=== PATIENT | female | born 1950 | race Caucasian/White ===

== ENCOUNTER → 2017-05-24 | Outpatient (CLI) | payer MEDICARE, OTHER ==
--- NOTE | 2017-05-28 09:04 | MM ---
Reason for exam: screening (asymptomatic). Last mammogram was performed 1 year and 9 months ago. History: Patient is postmenopausal and had first child at age 31. Physical Findings: A clinical breast exam by your physician is recommended on an annual basis and results should be correlated with mammographic findings. MG 3D Screening Mammo W/Cad Bilateral CC and MLO view(s) were taken. Prior study comparison: September 08, 2015, bilateral MG screening mammo w CAD. July 17, 2014, bilateral MG screening mammo w CAD. There are scattered fibroglandular densities. No significant changes when compared with prior studies. ASSESSMENT: Negative, BI-RAD 1 RECOMMENDATION: Routine screening mammogram of both breasts in 1 year.
== END | disposition home or self-care (01) ==
LOC: RADMAMWWP 14:24
PROVIDERS: ATTEND Obstetrics & Gynecology
DX: Z12.31 Encounter for screening mammogram for malignant neoplasm of breast (principal)
CPT/HCPCS: 77063; G0202

== ENCOUNTER → 2018-01-17 | Outpatient (CLI) | payer MEDICARE, OTHER ==
--- NOTE | 2018-01-17 18:29 | BD ---
EXAMINATION TYPE: Axial Bone Density DATE OF EXAM: 01/17/2018 COMPARISON: NONE CLINICAL HISTORY: Height: 4 FT 9 IN Weight: 154 FRAX RISK QUESTIONS: History of Fracture in Adulthood: YES Secondary Osteoporosis: RISK FACTORS HISTORY OF: Postmenopausal woman: AGE 49 Take estrogen and/or progesterone medications: TOOK FOR AROUND 3 YEARS NO LONGER TAKES Lost more than 2 inches in height since high school: YES MEDICATIONS: Additional Medications: EFFEXOR,VIT D ,ASPIRIN, ADIVAN NEEDED Additional History: EXAM MEASUREMENTS: Bone mineral densitometry was performed using the [employer] System. Bone mineral density as measured about the Lumbar spine is: ----- L1-L4(G/cm2): 1.138 T Score Values are as follows: ----- L2: 0.0 ----- L3: 0.8 ----- L4: -0.7 ----- L1-L4: -0.3 Bone mineral density has: DECREASED -5.5 % since study of: 2015 Bone mineral density about the L hip (g/cm2): 0.717 T Score values are as follows: -----L Neck: -2.3 -----L Total: -1.7 Bone mineral density has: DECREASED -9.9 % since study of: 2015 IMPRESSION: Osteopenia (T Score between -2.5 and -1). There is slightly increased risk of fracture and the patient may be considered for treatment. Re-Screen 2-5 years. NOTE: T-SCORE=SD OF THE YOUNG ADULT MEAN.
== END | disposition home or self-care (01) ==
LOC: RADBDWWP 16:24
PROVIDERS: ATTEND Obstetrics & Gynecology
DX: M85.80 Other specified disorders of bone density and structure, unspecified site (principal)
CPT/HCPCS: 77080

== ENCOUNTER 2018-04-20 13:55 | Emergency (ER) | payer MEDICARE, OTHER ==
[2018-04-20 14:13] VITALS: RESP 18; TEMP 97.8
[2018-04-20] MEDS ORDERED: DIPH,PERTUS(ACELL)TETVAC-LF 0.5 ML VIAL IM ONE (14:42)
--- NOTE | 2018-04-20 15:10 | ED ---
Head Injury HPI - General Chief complaint: Head Injury Stated complaint: Head injury Time Seen by Provider: 04/20/18 14:14 Source: patient, RN notes reviewed Mode of arrival: ambulatory Limitations: no limitations - History of Present Illness Initial comments: This is a 68-year-old female sent emergency Department chief complaint facial and head injury. Patient states that last night she was walking tripped on uneven sidewalk falling forward. She states that she sustained a laceration to her left eyebrow region states that she woke up with increased pain and bruising. She denies any loss conscious. Patient states that she went to urgent care who referred to the emergency Department secondary to her injury. Patient denies headache, dizziness, nausea, vomiting, blurred vision. Patient is unsure when her last tetanus was. - Related Data Allergies/Adverse reactions: Allergies Allergy/AdvReac Type Severity Reaction Status Date / Time bacitracin Allergy Rash/Hives Verified 04/20/18 14:13 neomycin Allergy Rash/Hives Verified 04/20/18 14:13 Review of Systems ROS Statement: Those systems with pertinent positive or pertinent negative responses have been documented in the HPI. ROS Other: All systems not noted in ROS Statement are negative. Past Medical History Additional Past Medical History / Comment(s): Arthritis History of Any Multi-Drug Resistant Organisms: None Reported Past Surgical History: Orthopedic Surgery Past Psychological History: Anxiety, Depression Smoking Status: Never smoker Past Alcohol Use History: Daily Past Drug Use History: None Reported General Exam Limitations: no limitations General appearance: alert, in no apparent distress Head exam: Present: atraumatic, normocephalic, normal inspection Eye exam: Present: normal appearance, PERRL, EOMI, periorbital swelling ( Moderate left-sided with ecchymosis), periorbital tenderness (Left superior, superficial 3 cm laceration). Absent: scleral icterus, conjunctival injection ENT exam: Present: normal exam, normal oropharynx, mucous membranes moist, TM's normal bilaterally Neck exam: Present: normal inspection, full ROM. Absent: tenderness, meningismus, lymphadenopathy Respiratory exam: Present: normal lung sounds bilaterally. Absent: respiratory distress, wheezes, rales, rhonchi, stridor Cardiovascular Exam: Present: regular rate, normal rhythm, normal heart sounds. Absent: systolic murmur, diastolic murmur, rubs, gallop, clicks GI/Abdominal exam: Present: soft, normal bowel sounds. Absent: distended, tenderness, guarding, rebound, rigid Neurological exam: Present: alert, oriented X3, CN II-XII intact, reflexes normal. Absent: motor sensory deficit Skin exam: Present: warm, dry, intact, normal color. Absent: rash Course Vital Signs 04/20/18 14:08 Temperature 97.8 F Pulse Rate 68 Respiratory 18 Rate Blood Pressure 127/61 O2 Sat by Pulse 99 Oximetry Medical Decision Making - Medical Decision Making 68-year-old female presented emergency Department for head injury, facial injury. Patient did have CT of her facial bones, brain and C-spine which shows no acute abnormality. Her tetanus was updated emergency room secondary to her laceration. There is no need for closure at this time. Patient will follow-up for recheck and return for any worsening symptoms. Disposition Clinical Impression: Facial contusion, Facial laceration Disposition: HOME SELF-CARE Condition: Stable Instructions: Facial Contusion (ED) Additional Instructions: Please return to the Emergency Department if symptoms worsen or any other concerns. Is patient prescribed a controlled substance at d/c from ED?: No Referrals: Charly Newman DO [Primary Care Provider] - 1-2 days Time of Disposition: 15:29
--- NOTE | 2018-04-20 15:19 | CT ---
EXAMINATION TYPE: CT brain larisa mendieta DATE OF EXAM: 04/20/2018 COMPARISON: None HISTORY: Pain CT DLP: 1079.4 mGycm, Automated exposure control for dose reduction was used. CONTRAST: Patient injected with 0 mL of Isovue 300. CT of the brain is performed utilizing 3 mm thick sections through the posterior fossa and 3 mm thick sections through the remaining calvarium. Study is performed within 24 hours of arrival to the hospital. No abnormal hyperdensity is present to suggest an acute intracranial hemorrhage. No mass lesion is evident. No acute infarcts are evident. Ventricles and sulci are appropriate for the patient age. Paranasal sinuses and mastoid air cells within the [id number] are clear. IMPRESSIONS: 1. No acute intracranial process. CT cervical spine. COMPARISON: None CT of the cervical spine is performed in the axial plane at 2 mm thick sections. Reconstructed image s in the coronal, and sagittal plane are reviewed on the computer. No acute fractures are evident. There is mild kyphosis through the cervical spine and within the mid to upper cervical spine. There is loss of disc height through the cervical spine especially notable C5-6. Milder narrowing is present C4-5 and C6-7. No significant endplate compression of the thecal sac is evident at C6-7. Ther e is central spurring C5-6 with moderate anterior thecal sac compression. This is contributing to bor derline spinal canal stenosis with an AP diameter of 0.8 cm. Uncovertebral joint hypertrophy is contr ibuting to foraminal narrowing C5-6 level. Some facet degenerative changes are noted in the upper cer vical spine. Vertebral body heights are preserved. No spinal canal stenosis is evident. IMPRESSIONS: 1. Degenerative disc changes within the mid cervical spine. 2. Endplate spurring at C5-C6 is contributing to mild spinal canal stenosis. 3. Foraminal narrowing mid cervical spine discussed above. 4. No acute osseous abnormality.
--- NOTE | 2018-04-20 15:20 | CT ---
EXAMINATION TYPE: CT facial bones wo con DATE OF EXAM: 04/20/2018 COMPARISON: None HISTORY: pain CT DLP: 410.1 mGycm CONTRAST: 0 mL of Isovue 300 The paranasal sinuses are examined in the axial plane at 2 mm thick sections. Reconstructed images i n the coronal plane were obtained. There is dental amalgam scatter artifact through the maxilla. The maxillary sinuses are clear. The ethmoid air cells are clear. The sphenoid sinuses are clear. The frontal sinuses are clear. Soft tissue swelling is over the left frontal region. No underlying f racture is evident. The septum is evaluated. There is septal deviation to the right. There is a small right septal spur present. Left harvinder bullosa is noted.. The ostiomeatal units are patent. IMPRESSIONS: 1. No acute osseous abnormality.
[2018-04-20 16:30] VITALS: BP 139/69; PULSE 92
== END 2018-04-20 16:30 | disposition home or self-care (01) ==
LOC: EC 13:55
DX: S01.112A Laceration without foreign body of left eyelid and periocular area, initial encounter (principal); Z23 Encounter for immunization; Z88.2 Allergy status to sulfonamides; Z88.1 Allergy status to other antibiotic agents; W01.0XXA Fall on same level from slipping, tripping and stumbling without subsequent striking against object, initial encounter
CPT/HCPCS: 70450; 70486; 72125; 90471; 90715; 99283

== ENCOUNTER → 2018-12-04 | Outpatient (CLI) | payer MEDICARE, OTHER ==
--- NOTE | 2018-12-06 08:25 | MM ---
Reason for exam: screening (asymptomatic). Last mammogram was performed 1 year and 6 months ago. History: Patient is postmenopausal and had first child at age 31. Family history of breast cancer in sister at age 50. Physical Findings: A clinical breast exam by your physician is recommended on an annual basis and results should be correlated with mammographic findings. MG 3D Screening Mammo W/Cad Bilateral CC and MLO view(s) were taken. Prior study comparison: May 24, 2017, bilateral MG 3d screening mammo w/cad. September 08, 2015, bilateral MG screening mammo w CAD. There are scattered fibroglandular densities. There is chronic nodularity in the right anterior medial breast. No significant changes when compared with prior studies. ASSESSMENT: Negative, BI-RAD 1 RECOMMENDATION: Routine screening mammogram of both breasts in 1 year.
== END | disposition home or self-care (01) ==
LOC: RADMAMWWP 13:45
PROVIDERS: ATTEND Obstetrics & Gynecology
DX: Z12.31 Encounter for screening mammogram for malignant neoplasm of breast (principal)
CPT/HCPCS: 77063; 77067

== ENCOUNTER → 2019-09-11 | Outpatient (CLI) | payer MEDICARE, OTHER ==
--- NOTE | 2019-09-12 08:03 | US ---
EXAMINATION TYPE: US carotid duplex BILAT DATE OF EXAM: 09/11/2019 COMPARISON: NONE CLINICAL HISTORY: I65.23 occlusion and stenosis of bilateral carotid. EXAM MEASUREMENTS: RIGHT: Peak Systolic Velocity (PSV) cm/sec ----- Right CCA: 86.6 ----- Right ICA: 101.1 ----- Right ECA: 99.4 ICA/CCA ratio: 1.2 RIGHT: End Diastole cm/sec ----- Right CCA: 19.3 ----- Right ICA: 25.6 ----- Right ECA: 13.5 LEFT: Peak Systolic Velocity (PSV) cm/sec ----- Left CCA: 11.0 ----- Left ICA: 119.8 ----- Left ECA: 87.5 ICA/CCA ratio: 1.1 LEFT: End Diastole cm/sec ----- Left CCA: 29.4 ----- Left ICA: 36.0 ----- Left ECA: 12.8 VERTEBRALS (direction of flow): Right Vertebral: Antegrade Left Vertebral: Antegrade Rhythm: Normal Mild plaque, no significant stenosis seen. IMPRESSION: Mild degree of grayscale atheromatous plaquing with no sonographically evident hemodynam ically significant stenosis within either visualized carotid arterial system. Criteria for Assigning % of Stenosis / Diameter reduction (Estimation based on the indirect measurements of the internal carotid artery velocities (ICA PSV). 1. Normal (no stenosis)=ICA PSV < 125 cm/s: ratio < 2.0: ICA EDV<40 cm/s. 2. Less than 50% stenosis=ICA PSV < 125 cm/s: ratio < 2.0: ICA EDV<40 cm/s. 3. 50 to 69% stenosis=ICA PSV of 125 to 230 cm/s: ration 2.0 ? 4.0: ICA EDV 40-100 cm/s. 4. Greater than 70% stenosis to near occlusion= ICA PSV > 230 cm/s: ratio > 4.0: ICA EDV > 100 cm/s. 5. Near occlusion= ICA PSV velocities may be low or undetectable: variable ratio and ICA EDV. 6. Total occlusion=unable to detect flow.
== END | disposition home or self-care (01) ==
LOC: RADUSWWP 16:23
PROVIDERS: ATTEND Family Medicine
DX: I65.23 Occlusion and stenosis of bilateral carotid arteries (principal)
CPT/HCPCS: 93880

== ENCOUNTER → 2021-06-10 | Outpatient (CLI) | payer MEDICARE, OTHER ==
--- NOTE | 2021-06-10 14:38 | BD ---
EXAMINATION TYPE: Axial Bone Density DATE OF EXAM: 06/10/2021 COMPARISON: 01/17/2018 CLINICAL HISTORY: Height: 56.5 IN Weight: 123 LBS RISK FACTORS HISTORY OF: Active: YES Diet low in dairy products/other sources of calcium: YES Postmenopausal woman: AGE 47 Take estrogen and/or progesterone medications: NOT NOW How long: TOOK FOR 5 YEARS Frequent falls: 4 TIMES IN LAST YEAR "TRIPPING" MEDICATIONS: Osteoporosis Medications: NOT NOW Which medication: Fosamax How Lon YEARS Additional Medications: CALCIUM, VIT D, VENLAFAXINE, LORAZEPAM, ROLAIDS, EXAM MEASUREMENTS: Bone mineral densitometry was performed using the Reaction System. Bone mineral density as measured about the Lumbar spine is: ----- L1-L4(G/cm2): 1.162 T Score Values are as follows: ----- L2: -1.2 ----- L3: 1.7 ----- L4: 0.9 ----- L1-L4: -0.1 Bone mineral density has: Increased 5.7% since study of: 01/17/2018 Bone mineral density about the R hip (g/cm2): 0.755 Bone mineral density about the L hip (g/cm2): 0.738 T Score values are as follows: -----R Neck: -2.0 -----L Neck: -2.2 -----R Total: -1.1 -----L Total: -2.1 Bone mineral density has: Decreased -5.4% since study of: 09/08/2015 BOTH HIPS WERE DONE ON 09/08/2015 IMPRESSION: Osteopenia (T Score between -2.5 and -1). There is slightly increased risk of fracture and the patient may be considered for treatment. Re-Screen 2-5 years. NOTE: T-SCORE=SD OF THE YOUNG ADULT MEAN.
--- NOTE | 2021-06-13 13:55 | MM ---
Reason for exam: screening (asymptomatic). Last mammogram was performed 2 years and 6 months ago. History: Patient is postmenopausal and had first child at age 31. Family history of breast cancer in sister at age 50. Physical Findings: A clinical breast exam by your physician is recommended on an annual basis and results should be correlated with mammographic findings. MG 3D Screening Mammo W/Cad Bilateral CC and MLO view(s) were taken. Prior study comparison: December 04, 2018, bilateral MG 3d screening mammo w/cad. May 24, 2017, bilateral MG 3d screening mammo w/cad. September 08, 2015, bilateral MG screening mammo w CAD. The breast tissue is heterogeneously dense. This may lower the sensitivity of mammography. Decreased breast size in keeping with patient's weight loss. Benign secretory calcifications on the right. No significant changes when compared with prior studies. ASSESSMENT: Benign, BI-RAD 2 RECOMMENDATION: Routine screening mammogram of both breasts in 1 year.
== END | disposition home or self-care (01) ==
LOC: RADBDWWP 12:47
PROVIDERS: ATTEND Obstetrics & Gynecology
DX: Z12.31 Encounter for screening mammogram for malignant neoplasm of breast (principal); Z80.3 Family history of malignant neoplasm of breast; Z13.820 Encounter for screening for osteoporosis; M85.89 Other specified disorders of bone density and structure, multiple sites; Z78.0 Asymptomatic menopausal state
CPT/HCPCS: 77063; 77067; 77080

== ENCOUNTER → 2021-06-24 | Outpatient (CLI) | payer MEDICARE, OTHER ==
[2021-06-24 16:50] LABS: Basophils % (A) 1 %; Eosinophils % (A) 0 %; HCT 42.6 % (34.0-46.0); HGB 13.1 gm/dL (11.4-16.0); Lymphocytes # (A) 1.1 k/uL (1.0-4.8); Lymphocytes % (A) 17 %; MCH 28.6 pg (25.0-35.0); MCHC 30.9 g/dL (31.0-37.0); MCV 92.7 fL (80.0-100.0); Mean Platelet Volume 7.1; Monocytes # (A) 0.2 k/uL (0-1.0); Monocytes % (A) 3 %; Neutrophils # (A) 4.7 k/uL (1.3-7.7); Neutrophils % (A) 77 %; Platelet Count 278 k/uL (150-450); RBC 4.59 m/uL (3.80-5.40); RDW 12.9 % (11.5-15.5); WBC 6.1 k/uL (3.8-10.6)
[2021-06-24 17:14] LABS: Potassium 5.6 mmol/L (3.5-5.1)
== END | disposition home or self-care (01) ==
LOC: LABPAT 15:49
PROVIDERS: ATTEND Orthopaedic Surgery
DX: Z01.812 Encounter for preprocedural laboratory examination (principal); G56.01 Carpal tunnel syndrome, right upper limb
CPT/HCPCS: 80051; 85025

== ENCOUNTER 2021-07-01 08:20 | Day surgery (SDC) | payer MEDICARE, OTHER ==
[2021-06-29 14:43] VITALS: BMI 25.9
--- NOTE | 2021-06-30 10:45 | HP ---
HISTORY AND PHYSICAL CHIEF COMPLAINT: Right hand pain and numbness. HISTORY OF PRESENT ILLNESS: The patient is a 71-year-old retired female who presents with progressive right hand pain and numbness for the past several years, worsening recently. She is having a difficult time with gripping and grasping. She notes numbness and pain. She has tried bracing and medications, with only partial temporary relief. PAST MEDICAL HISTORY: Significant for depression, osteopenia and peptic ulcer disease. PAST SURGICAL HISTORY: Significant for previous right hand surgery in addition to previous knee surgery. CURRENT MEDICATIONS: Lorazepam, Tylenol, Venlafaxine. ALLERGIES: BACITRACIN AND NEOMYCIN. FAMILY HISTORY: Significant for heart disease and cancer. SOCIAL HISTORY: Negative for current tobacco or alcohol use. REVIEW OF SYSTEMS: Sixteen-point review of systems is otherwise reviewed and noncontributory. PHYSICAL EXAMINATION: On examination, the patient is approximately 4 feet 9 inches, 110 pounds of mesomorphic habitus. HEENT exam is nonfocal. Neck is supple. She is nontender about the right shoulder and elbow. On examination of her right wrist, she has a positive Tinel's over the carpal canal. Light touch is diminished throughout the thumb, index and middle finger. Adductor pollicis brevis strength is 4 minus over 5. She has profound thenar atrophy. EMG report 05/03/2021 of the right upper extremity shows median motor latency of the carpal canal 4.4, sensory latency non-recordable. IMPRESSION: Right carpal tunnel syndrome, symptomatic. RECOMMENDATIONS: I talked to the patient at length regarding her condition along with treatment options. At this point she is quite symptomatic and limited because of pain and numbness despite previous conservative measures. After thorough discussion, she opts to proceed with surgery. We will plan to proceed with right carpal tunnel release as an outpatient procedure utilizing local anesthetic and IV sedation. Risks and benefits were discussed at length in layman's terms. MMODL / IJN: [id number] /
[~2021-07-01 08:20] MED LIST: DEXAMETHASONE SOD PHOSPHATE 4 MG/ML 1 ML VIAL IV ONE; HYDROmorphone 0.5 MG/0.5 ML SYRINGE IVP PRN; LACTATED RINGERS 1,000 ML IV SCH; MIDAZOLAM 2 MG/2 ML VIAL IV PRN; ONDANSETRON 4 MG/2 ML VIAL IVP ONE
[2021-07-01 08:51] VITALS: TEMP 98.2
[2021-07-01] MEDS ORDERED: PROPOFOL 10 MG/ML 20 ML VIAL IV ONE (09:41)
[2021-07-01] MEDS ORDERED: LIDOCAINE 1% INJ 10MG/ML (20 ML MDV) ONE (09:41)
[2021-07-01] MEDS ORDERED: fentaNYL (PF) 50 MCG/ML 2 ML AMP ONE (09:41)
[2021-07-01] MEDS ORDERED: MIDAZOLAM 2 MG/2 ML VIAL ONE (09:41)
[2021-07-01] MEDS ORDERED: diphenhydrAMINE 50 MG/ML 1 ML VIAL ONE (09:41)
[2021-07-01] MEDS ORDERED: BUPIVACAINE (PF) 0.25% 30 ML VIAL SQ ONE ×2 (10:02)
[2021-07-01 10:38] VITALS: BP 134/77; PULSE 68; RESP 18
--- NOTE | 2021-07-01 11:02 | P.OP ---
Date of Procedure: 07/01/21 Preoperative Diagnosis: Symptomatic right carpal tunnel syndrome Postoperative Diagnosis: Same Procedure(s) Performed: Right carpal tunnel release Anesthesia: MAC, local Surgeon: Vinny Hernandez Estimated Blood Loss (ml): 1 Pathology: none sent Condition: stable Disposition: PACU Indications for Procedure: The patient's a 71-year-old female presents with progressive right hand pain and numbness secondary to carpal tunnel syndrome despite conservative measures. A discussion of the risks and benefits of operative intervention versus continued conservative measures was made with the patient. She opted to proceed with surgery. Operative risks to include infection, neurovascular injury, development blood clots, possible incomplete resolution of symptoms, possible recurrence of symptoms and need for subsequent procedures was discussed. Informed consent was obtained. Operative Findings: As below Description of Procedure: The patient was brought to the operating room, and after induction of IV sedation the right upper extremity was prepped and draped in normal fashion. The proposed incision site was outlined skin marker in line with the radial aspect the fourth ray extending from the volar wrist crease distally 2-1/2 cm. One quarter percent plain Marcaine was injected into the proposed incision site. 9 mL was utilized. The tourniquet was inflated to 250 mmHg. The skin incision was then made. The skin was incised sharply. Subcutaneous tissues were divided sharply the superficial palmar fascia was identified and split in line with the skin incision. The transverse carpal ligament was identified and transected under direct visualization distally to level the palmar fat pad. Proximally it was taken to the level of the volar wrist crease. A plane above and below the transverse carpal ligament was then bluntly developed with tenotomies. The confluence of the distal forearm fascia and the transverse carpal ligament was then transected under direct visualization proximally with the tines pointed in the ulnar direction. I felt this was adequate proximal release. Neural lysis was not performed. The wound was irrigated with normal saline. Electrocautery was used for hemostasis. The skin was reapproximated with simple 3-0 nylon sutures. A sterile dressing was applied. The tourniquet was deflated with less than 15 minutes total tourniquet time. Patient was awoken from sedation and transferred to the recovery room in good condition. Blood loss was estimated 1 mL. No complications were incurred. Sponge and needle counts were correct at the end of the case.
== END 2021-07-01 11:04 | disposition home or self-care (01) ==
LOC: OR 08:20
PROVIDERS: ATTEND Orthopaedic Surgery
DX: G56.01 Carpal tunnel syndrome, right upper limb (principal); F32.9 Major depressive disorder, single episode, unspecified; M85.80 Other specified disorders of bone density and structure, unspecified site; K27.9 Peptic ulcer, site unspecified, unspecified as acute or chronic, without hemorrhage or perforation; K21.9 Gastro-esophageal reflux disease without esophagitis; Z79.899 Other long term (current) drug therapy; Z88.1 Allergy status to other antibiotic agents
CPT/HCPCS: 84132; 64721; J2250; J1200; J1100; J2405; J0690; J2001; J3010; J2704

== ENCOUNTER → 2022-02-07 | Outpatient (CLI) | payer MEDICARE, OTHER | END | disposition home or self-care (01) | LOC: LABPAT 15:49 | PROVIDERS: ATTEND Orthopaedic Surgery | DX: Z01.812 Encounter for preprocedural laboratory examination (principal); M17.12 Unilateral primary osteoarthritis, left knee | CPT/HCPCS: 87070 ==

== ENCOUNTER 2022-02-14 10:27 | Inpatient (IN) | payer MEDICARE, OTHER ==
[2022-02-09 15:37] VITALS: BMI 29.8
--- NOTE | 2022-02-13 09:53 | HP ---
HISTORY AND PHYSICAL CHIEF COMPLAINT: Left knee pain. HISTORY OF PRESENT ILLNESS: The patient is a 71-year-old retired female who presents with progressive left knee pain for the past several years, worsening recently. She has a difficult time with any weight-bearing activities. She is also having pain at night. She has tried medications in addition to previous injections, without much relief. PAST MEDICAL HISTORY: Significant for arthritis, osteopenia, depression and peptic ulcer disease. PAST SURGICAL HISTORY: Significant for right hand surgery in addition to previous right total knee arthroplasty with subsequent revision. CURRENT MEDICATIONS: Lorazepam, acetaminophen. ALLERGIES: BACITRACIN AND NEOMYCIN. FAMILY HISTORY: Significant for heart disease and cancer. SOCIAL HISTORY: Negative for current tobacco or alcohol use. REVIEW OF SYSTEMS: Sixteen-point review of systems otherwise reviewed and is noncontributory. PHYSICAL EXAMINATION: On examination, patient is approximately 4 feet 9 inches, 110 pounds of mesomorphic habitus. HEENT exam is nonfocal. Neck is supple. She has painless passive motion of the left hip. Straight-leg raise is negative. Active motion of left knee: Minus 14 to 90 degrees of flexion. She has mild effusion. She is tender about the medial joint line. Collaterals are stable. Mike is negative. Sam's is equivocal. She has significant genu varum deformity. Weight-bearing notch, lateral and Merchant views of the left knee obtained in the office show severe medial compartment narrowing with [id number] changes and subchondral sclerosis. Severe genu varum deformity is noted. IMPRESSION: Left knee severe medial compartment osteoarthrosis. RECOMMENDATIONS: I talked to the patient at length regarding her condition along with treatment options. At this point she is quite limited because of pain related to her osteoarthrosis despite previous conservative measures. After thorough discussion, she opts to proceed with surgery. We will plan to proceed with left total knee arthroplasty. Risks and benefits were discussed at length in layman's terms. We will institute DVT prophylaxis postoperatively. MMODL / IJN: [id number] /
[~2022-02-14 10:27] MED LIST changes: +ACETAMINOPHEN TAB 500 MG TAB PO PRN; -LACTATED RINGERS 1,000 ML IV SCH; +LIDOCAINE 1% (10MG/ML) FOR IV START INTRADERMA PRN; +MELOXICAM 7.5 MG TAB PO PRN; +TRANEXAMIC ACID IN NACL,ISO-OS 1,000 MG in SALINE 1 100ML.BAG IVPB PRN
[2022-02-14] MEDS: LACTATED RINGERS 1,000 ML IV SCH ×2 (10:42→16:13)
[2022-02-14] MEDS ORDERED: MIDAZOLAM 2 MG/2 ML VIAL IVP ONE (11:51)
[2022-02-14] MEDS ORDERED: fentaNYL (PF) 50 MCG/ML 2 ML AMP ONE (12:07)
[2022-02-14] MEDS ORDERED: diphenhydrAMINE 50 MG/ML 1 ML VIAL ONE (12:07)
[2022-02-14] MEDS ORDERED: ROPIVACAINE 5 MG/ML 30 ML VIAL ONE (12:07)
[2022-02-14] MEDS ORDERED: KETAMINE 10 MG/ML 20 ML VIAL ONE (12:07)
[2022-02-14] MEDS ORDERED: MIDAZOLAM 2 MG/2 ML VIAL ONE (12:07)
[2022-02-14] MEDS ORDERED: DEXAMETHASONE SOD PHOSPHATE 4 MG/ML 1 ML VIAL ONE (12:07)
[2022-02-14] MEDS ORDERED: PROPOFOL 10 MG/ML 20 ML VIAL IV ONE (12:07)
[2022-02-14] MEDS ORDERED: PHENYLEPHRINE-0.9% NACL SYG 1,000 MCG/10 ML SYRINGE ONE (12:07)
[2022-02-14] MEDS ORDERED: TRANEXAMIC ACID IN NACL,ISO-OS 1,000 MG/100 ML BAG ONE (12:07)
[2022-02-14] MEDS ORDERED: ceFAZolin 3,000 MG in SODIUM CHLORIDE 0.9% IRRIGATIO 3,000 ML IRRIGATION ONE (12:41)
[2022-02-14] MEDS ORDERED: LACTATED RINGERS 1,000 ML IV ONE (13:16)
[2022-02-14] MEDS ORDERED: HYDROcodone/APAP 5-325MG 1 EACH TAB PO PRN (14:06)
[2022-02-14] MEDS ORDERED: HYDROmorphone 0.5 MG/0.5 ML SYRINGE IVP PRN (14:06)
[2022-02-14] MEDS ORDERED: ONDANSETRON 4 MG/2 ML VIAL IVP PRN (14:06)
[2022-02-14] MEDS ORDERED: NALOXONE 0.4 MG/ML 1 ML VIAL IV PRN (14:06)
[2022-02-14] MEDS ORDERED: MAGNESIUM HYDROXIDE 2,400 MG/10 ML CUP PO PRN (14:06)
[2022-02-14] MEDS ORDERED: ACETAMINOPHEN TAB 325 MG TAB PO PRN (14:06)
--- NOTE | 2022-02-14 14:30 | P.OP ---
Date of Procedure: 02/14/22 Preoperative Diagnosis: Left knee severe tricompartmental osteoarthrosis Postoperative Diagnosis: Same Procedure(s) Performed: Left total knee arthroplastycementedconstrained Implants: Depuy TC3 size 3 cemented femoral component, size 2.5 cemented tibial component with a 29 mm metaphyseal sleeve and 13 x 30 mm cemented tibial stem, 12.5 mm articular surface. This is a constrained implant. Anesthesia: regional, spinal Surgeon: Vinny Hernandez Field Sales Agent #1: Myron Barraza Field Sales Agent #2: Vlad Malik Estimated Blood Loss (ml): 50 Pathology: other (Bone fragments) Condition: stable Disposition: PACU Indications for Procedure: The patient's a 71-year-old female who presents with progressive left knee pain and deformity secondary to osteoarthrosis despite conservative measures. A discussion of the risks and benefits of operative intervention versus continued conservative measures was made with patient. She opted to proceed with surgery. Operative risks to include infection, neurovascular injury, development of blood clots, fracture, instability, component failure need for subsequent procedures was discussed. Informed consent was obtained. Operative Findings: As below Description of Procedure: The patient was brought to the operating room, and after induction of spinal anesthesia the left lower extremity was prepped and draped in a normal fashion. The tourniquet was inflated to 270 mm marker. A longitudinal incision extending 3 finger breaths above the superior pole of patella extending to the medial aspect the tibial tubercle was then made. The skin and subcutaneous tissues were divided sharply. Electrocautery was used for hemostasis. A medial parapatellar arthrotomy was performed. The medial soft tissues to include the superficial and deep portions of the medial collateral ligament were elevated subperiosteally. The medial tibial osteophytes were removed with a curved osteotome. The patella was everted. A portion of the retropatellar fat pad was excised sharply. The anterior cruciate ligament was sacrificed. Blunt retractors were placed. A starting hole was made in the distal femur 1 cm anterior to the posterior cruciate ligament origin. An intramedullary femoral guide was then inserted planning on 5 valgus distal cut with 9 mm distal resection. The cutting block was pinned in place. The distal cut was then made. The posterior referencing sizing guide was utilized. I felt size 3 was most appropriate. 3 of external rotation was built into the system and verified off the trans-epicondylar axis and the posterior condyles. The cutting block was pinned in place. The anterior, posterior, and chamfer cuts then made. Bone fragments were removed. The intercondylar guide was placed and the notch cut was made with a sagittal saw. The bone block was removed in one fragment. The trial component was then placed. There is good anterior to posterior and medial to lateral fit. The distal peg holes were drilled. The trial component was removed. Attention was then paid towards preparing the proximal femur. An extra medullary guide was utilized in line with the tibial shaft and second metatarsal distally. I planned on 0 mm resection from the medial compartment. The cutting block was pinned in place. The proximal tibial cut was then made. The bone was removed in one fragment. The remnants of the medial and lateral menisci were excised at the capsular junction with electrocautery. The tibia sized most appropriately at size 2.5. The tibial canal was reamed up to 14 mm distally. The opening broach reamer was inserted to the appropriate depth. The 29 mm broach was then inserted the appropriate depth. There was good rotational stability. The trial femoral and tibial components were placed along with a 12.5 mm articular surface. I was able to obtain full flexion and extension with internal and external rotation. Attention was then paid towards preparing the patella. A patella reamer was utilized taking stem to 14 mm of bone stock. A good flush cut was made. The patella sized most appropriately 32 mm. The peg holes were drilled. The trial components placed. I had good patellofemoral tracking with no hands technique. The trial components were then removed. The tibia was prepared in the appropriate rotation with appropriate drill and keel p unch. The posterior osteophytes were removed with a curved osteotome. The flexion and extension gaps were checked and felt to be symmetric at 12.5 mm. A trial components were then removed. The bony surfaces were prepared with pulsatile lavage and dried. The tibial component was then cemented place was fully seated. Excess cement was removed. The femoral component cemented place and was fully seated. Excess cement was removed. The trial 12.5 mm articular surface was placed and the knee was put in full extension. The patella component was cemented place. After the cement had sufficiently hardened, the knee was again taken through a range of motion. Again I was able to obtain full flexion and extension with varus and valgus stress. The trial 12.5 mm articular surface was removed and the final one inserted. This was fully seated. Care was taken to avoid any soft tissue interposition. Pulsatile lavage was again utilized. The medial parapatellar arthrotomy was closed with #2 Ethibond suture. The tourniquet was deflated with approximately 70 minutes total tourniquet time. Final hemostasis was obtained with the cautery. There was minimal bleeding therefore a deep drain was not placed. The subcutaneous tissues were reapproximated with interrupted 2-0 Vicryl sutures. The skin was reapproximated with 3-0 subcuticular strata fix suture. Skin tape and adhesive was applied. A sterile dressing was applied. The patient was awoken from sedation and transferred to recovery room in good condition. Blood loss was estimated at 50 mL. No complications were incurred. Sponge and needle counts were correct at the end of the case. Myron REEVES and Phil REEVES assisted during the major components of this case to include exposure, bone resection, implantation, and closure.
[2022-02-14] MEDS ORDERED: ROPIVACAINE 0.2%-NS ON-Q PUMP 2 MG/ML EACH MISCELLANE ONE (14:40)
--- NOTE | 2022-02-14 15:06 | XR ---
EXAMINATION TYPE: XR knee limited LT DATE OF EXAM: 02/14/2022 COMPARISON: NONE HISTORY: 71-year-old female evaluation for postoperative abnormality in alignment. TECHNIQUE: 2 views FINDINGS: Images show placement of hinged left total knee arthroplasty. Alignment grossly anatomic. Anterior so ft tissue swelling with scattered soft tissue air as well as intra-articular air related to recent op eration. IMPRESSION: Uncomplicated postoperative appearance revision hinged left total knee arthroplasty.
[2022-02-14] MEDS ORDERED: FAMOTIDINE 20 MG TAB PO PRN (17:56)
[2022-02-14] MEDS: SENNOSIDES-DOCUSATE SODIUM 1 EACH TAB PO SCH (20:41)
[2022-02-14] MEDS: VENLAFAXINE HCL ER 150 MG CAP PO SCH (20:41)
[2022-02-15] MEDS: HYDROcodone/APAP 7.5-325MG 1 EACH TAB PO PRN ×3 (03:16→17:18)
[2022-02-15] MEDS: LACTATED RINGERS 1,000 ML IV SCH ×2 (05:56→18:08)
--- NOTE | 2022-02-15 07:42 | P.ANPRN ---
Procedure Note - Anesthesia - Nerve Block Performed Left Adductor Canal Infusion Time Out Performed: Yes Date of Procedure: 02/15/22 Procedure Start Time: 11:50 Procedure Stop Time: 12:00 Location of Patient: PreOp Indication: Acute Post-Operative Pain, Requested by Surgeon Sedation Type: Sedate with meaningful contact maintained Preparation: Sterile Prep, Sterile Dressing Position: Supine Catheter: Indwelling Needle Types: Pajunk Needle Gauge: 21 Ultrasound used to visualize needle placement: Yes Ultrasound used to observe medication spread: Yes Blood Aspirated: No Pain Paresthesia on Injection Noted: No Resistance on Injection: Normal Image Stored and Saved: Yes Events: Uneventful and Well Tolerated (ropi .5% 20cc)
--- NOTE | 2022-02-15 07:43 | P.ANPRN ---
Procedure Note - Anesthesia - Nerve Block Performed Left iPack Single Time Out Performed: Yes Date of Procedure: 02/15/22 Procedure Start Time: 12:01 Procedure Stop Time: 12:04 Location of Patient: PreOp Indication: Acute Post-Operative Pain, Requested by Surgeon Sedation Type: Sedate with meaningful contact maintained Preparation: Sterile Prep Position: Supine Needle Types: Pajunk Needle Gauge: 21 Ultrasound used to visualize needle placement: Yes Ultrasound used to observe medication spread: Yes Blood Aspirated: No Pain Paresthesia on Injection Noted: No Resistance on Injection: Normal Image Stored and Saved: Yes Events: Uneventful and Well Tolerated (ropi .5% 20cc plus dexamethasone 4mg)
--- NOTE | 2022-02-15 07:53 | P.PN ---
Progress Note - Text 02/15/22 722am 1-year-old female status post total knee replacement by Dr. Hernandez. Patient has an On-Q pump for postop pain control with the solution running at 8 mL an hour with a VAS of 2, she is Complaining of pain in the posterior aspect of the knee. I explained to her the ipack block that we had done has probably morning. Patient without take oral pain medication for her pain. Plan to continue On-Q pump infusion
[2022-02-15] MEDS: RIVAROXABAN 10 MG TAB PO SCH (10:05)
[2022-02-15] MEDS: MULTIVITAMINS, THERA 1 EACH TAB PO SCH (10:06)
--- NOTE | 2022-02-15 10:23 | P.PN ---
Subjective Progress Note Date: 02/15/22 Principal diagnosis: Status post left total knee arthroplasty Patient evaluated at bedside, she is resting in her hospital bed. She's been up ambulating into the restroom. She's having no difficulty with urination. She is passing some gas she states. Her pain is currently controlled. She was evaluated after physical therapy also, and she did well with this. She currently denies any headaches, lightheadedness, chest pain or shortness of breath. Objective - Vital Signs Vital signs: Vital Signs Temp 98.9 F 02/15/22 07:37 Pulse 92 02/15/22 07:37 Resp 16 02/15/22 07:37 BP 102/61 02/15/22 07:37 Pulse Ox 91 L 02/15/22 07:37 FiO2 Intake & Output 02/14/22 02/15/22 02/15/22 18:59 06:59 18:59 Intake Total 2241 600 Output Total 50 Balance 2191 600 Weight 62.8 kg Intake: IV 1901 Intake, IV Titration 100 600 Amount Lactated Ringers 1,000 ml 100 600 @ 50 mls/hr IV .Q20H ROJAS Rx#:[id number] Oral 240 Output: Estimated Blood Loss 50 Other: Voiding Method Toilet # Voids 0 2 # Bowel Movements 0 - Exam Left lower extremity: Incision is clean, dry, and intact. The exofin fusion tape is in good condition. There is minimal soft tissue swelling and ecchymosis surrounding the medial and lateral aspects of the incision. Calf is soft, no tenderness with palpation. Plantar flexion, dorsiflexion, EHL, FHL are intact. Sensory exam to light touch throughout the extremity is intact, dorsal pedis pulses 2+. Assessment and Plan Assessment: Postoperative day #1 status post left total knee arthroplasty Plan: Pain control, plan for discharge home on [place] 7.5 mg/325 mg GI and DVT prophylaxis, utilizing helical 2.5 mg daily for 2 weeks, Colace 100 mg daily also will be prescribed Wound care instructions were discussed, this including icing elevating along with showering Home physical therapy/nursing after discharge Encourage incentive spirometer Medical recommendations Discharge planning: Patient will be discharged home later today Time with Patient: Less than 30
--- NOTE | 2022-02-15 10:30 | P.DS ---
Providers Date of admission: 02/14/2022 Expected date of discharge: 02/15/22 Attending physician: Vinny Hernandez Consults: 02/14/22 14:06 Consult Physician Routine Consulting Provider: Umair Maldonado Consult Reason/Comments: medical management Do you want consulting provider notified?: Yes Primary care physician: [facility] Hospital Course: Date of admission: 02/14/2022 Date of discharge: 02/16/2020 Admission diagnosis: Status post left total knee arthroplasty Discharge diagnosis: Same Attending physician: Dr. Hernandez Surgical procedures: Left total knee arthroplasty Brief history: Patient is a 71-year-old female with a history of progressive primary left knee osteoarthritis. At this point patient has failed conservative treatment measures and has opted to proceed with a elective left total knee arthroplasty. Hospital course: Details of patient's surgery can be found in operative report. Patient tolerated the procedure well and was subsequently transported to orthopedic floor. Patient's orthopeidc and medical care was provided daily. Patient had daily laboratory tests performed for evaluation of overall blood counts. Patient had daily physical therapy to include strengthening range of motion as well as education with walker ambulation. Patient was treated with Xarelto for their postoperative DVT prophylaxis during their inpatient stay. Patient was noted to have a relatively uneventful postoperative course. Patient reported satisfactory pain control with oral pain medications by postoperative day 0. Patient showed satisfactory progress with physical therapy. Patient moved steadily through the program and had no difficulty meeting the goals by postoperative day 1. Given patient's otherwise satisfactory course and having met physical therapy goals, plan is to discharge patient home on postoperative day 1. Discharge condition/disposition: Patient will be discharged home in stable condition. Discharge medications: Instructions are given on resumption of patient's normal daily medications per primary care recommendation, in addition patient will be prescribed [place] 7.5 mg/325 mg, Colace 100 mg, Eliquis 2.5 mg. Discharge instructions: 1. Wound care and infection precautions, keep incision dry and covered while showering, no lotions, creams, moisturizers. No soaking, tubs, pools, hottubs. Do not scrub over the incision. 2. Weight-bear as tolerated with walker / cane until follow-up. 3. Ice and elevate when necessary. Do not exceed 20 minutes per hour with ice pack. 4. Utilize compression sleeve until seen at first follow up appointment. 5. Visiting nursing care. 6. Home physical therapy including home CPM. 7. Pain meds and anticoagulants per prescription. 8. Pain medication has potential to cause constipation. Increase oral fluid and fiber intake. Contact primary care provider if you have not had a bowel movement within 48 hours after discharge 9. No anti-inflammatory medication until discussed at first post operative visit, this including Motrin, Aleve, Mobic, Diclofenac. 10. Follow up in office at 2 weeks postop with Phil Malik PA-C/Myron Echeverria 11. Follow up with your primary care doctor 7-10 days after discharge. 12. Contact [facility] with any questions, . Procedures: Left total knee arthroplasty Patient Condition at Discharge: Good Plan - Discharge Summary Discharge Rx Participant: Yes New Discharge Prescriptions: New HYDROcodone/APAP 7.5-325MG [[place] 7.5] 1 each PO Q6HR PRN #42 tab PRN Reason: Pain Docusate [Colace] 100 mg PO DAILY #30 capsule Apixaban [Eliquis] 2.5 mg PO BID #60 tab Discontinued Aspirin EC [Ecotrin] 325 mg PO DAILY PRN PRN Reason: Pain No Action LORazepam [Ativan] 0.25 mg PO DAILY PRN PRN Reason: Anxiety Acetaminophen [Tylenol] 500 - 1,000 mg PO DIRECTED PRN PRN Reason: Pain Loratadine [Claritin] 10 mg PO DAILY PRN PRN Reason: Allergy Symptoms Betamethasone Dipropionate [Betamethasone Dipropionate 0.05%] 1 applic TOPICAL DAILY PRN PRN Reason: eczema Venlafaxine HCl ER [Effexor Xr] 150 mg PO HS Ashwagandha Root Extract 800 mg PO BID [place] Bone Strength 1 tab PO DAILY Famotidine 10 mg PO DAILY PRN PRN Reason: Gi Upset Calcium Carb/Magnesium Hydrox [Rolaids Chew tab] 1 tab PO DAILY PRN PRN Reason: acid reflux Lactose Enzymes 1 dose PO DAILY PRN PRN Reason: Gi Upset Multivitamins, Thera [Multivitamin (formulary)] 1 tab PO DAILY Calcium Carbonate [Tums] 500 - 1,000 mg PO QID PRN PRN Reason: Acid Reflux Amoxicillin(Unknown Dose) 1 tab PO DIRECTED PRN PRN Reason: Prior to dental work Discharge Medication List Acetaminophen [Tylenol] 500 - 1,000 mg PO DIRECTED PRN 06/29/21 [History] Ashwagandha Root Extract 800 mg PO BID 06/29/21 [History] Betamethasone Dipropionate [Betamethasone Dipropionate 0.05%] 1 applic TOPICAL DAILY PRN 06/29/21 [History] Calcium Carb/Magnesium Hydrox [Rolaids Chew tab] 1 tab PO DAILY PRN 06/29/21 [History] Famotidine 10 mg PO DAILY PRN 06/29/21 [History] LORazepam [Ativan] 0.25 mg PO DAILY PRN 06/29/21 [History] Lactose Enzymes 1 dose PO DAILY PRN 06/29/21 [History] Loratadine [Claritin] 10 mg PO DAILY PRN 06/29/21 [History] [place] Bone Strength 1 tab PO DAILY 06/29/21 [History] Venlafaxine HCl ER [Effexor Xr] 150 mg PO HS 06/29/21 [History] Amoxicillin(Unknown Dose) 1 tab PO DIRECTED PRN 02/09/22 [History] Calcium Carbonate [Tums] 500 - 1,000 mg PO QID PRN 02/09/22 [History] Multivitamins, Thera [Multivitamin (formulary)] 1 tab PO DAILY 02/09/22 [History] Apixaban [Eliquis] 2.5 mg PO BID #60 tab 02/15/22 [Rx] Docusate [Colace] 100 mg PO DAILY #30 capsule 02/15/22 [Rx] HYDROcodone/APAP 7.5-325MG [[place] 7.5] 1 each PO Q6HR PRN #42 tab 02/15/22 [Rx] Follow up Appointment(s)/Referral(s): [facility] [facility] [NON-STAFF] - As Needed (Contact if questions regarding Meals on Wheels.) [facility] [NON-STAFF] - 1-2 Days (Supplier of CPM for home.) [facility] Visiting Nurse, [NON-STAFF] - 1-2 Days Myron Barraza PAC [PHYSICIAN MANAGER WIND] - 2 Weeks Activity/Diet/Wound Care/Special Instructions: Orthopedic Discharge Instructions: 1. Wound care and infection precautions, keep incision dry and covered while showering, no lotions, creams, moisturizers. No soaking, pools, hot tubs. Do not scrub over incision. 2. Weight-bear as tolerated with walker / cane until follow-up. 3. Ice and elevate when necessary. Do not exceed 20 minutes per hour with ice pack. 4. Utilize compression sleeve until seen at first follow up appointment. 5. Pain meds and anticoagulants per prescription. 6. Pain medication has potential to cause constipation. Increase oral fluid and fiber intake. Contact primary care provider if you have not had a bowel movement within 48 hours after discharge. 7. No anti-inflammatory medication until discussed at first post operative visit, this including Motrin, Aleve, Mobic, Diclofenac. 8. Follow up in office at 2 weeks postop with Phil Malik PA-C/Myron Barraza PA-C 9. Follow up with your primary care doctor 7-10 days after discharge. 10. Contact [facility] with any questions, . Discharge/Stand Alone Forms: Personal Store Facility Technician Discharge Disposition: HOME WITH HOME HEALTH SERVICES
[2022-02-15 10:32] LABS: Basophils # (A) 0.02 X 10*3/uL (0.00-0.10); Basophils % (A) 0.2 %; Eosinophils # (A) 0 X 10*3/uL (0.04-0.35); Eosinophils % (A) 0 %; HCT 33.6 % (37.2-46.3); HGB 10.3 g/dL (12.0-15.0); Immature Grans, Automated 0.3 %; Lymphocytes # (A) 1.43 X 10*3/uL (0.90-5.00); Lymphocytes % (A) 16.5 %; MCHC 30.7 g/dL (32.0-37.0); MCV 88.2 fL (80.0-97.0); Mean Platelet Volume 9.3 fL (9.5-12.2); Monocytes # (A) 0.73 X 10*3/uL (0.20-1.00); Monocytes % (A) 8.4 %; NRBC Per 100 WBC 0 /100 WBCS (0.0-0.0); Neutrophils # (A) 6.48 X 10*3/uL (1.80-7.70); Neutrophils % (A) 74.6 %; Platelet Count 269 X 10*3/uL (140-440); RBC 3.81 X 10*6/uL (4.10-5.20); RDW 14.6 % (11.5-14.5); WBC 8.69 X 10*3/uL (4.50-10.00)
[2022-02-15] MEDS: HYDROmorphone 1 MG/ML 1 ML SYRINGE IVP PRN ×2 (12:45→22:45)
[2022-02-15] MEDS ORDERED: LORazepam 0.5 MG TAB PO PRN (13:14)
[2022-02-15] MEDS: hydrOXYzine pamoate 25 MG CAP PO PRN ×2 (13:27→20:37)
--- NOTE | 2022-02-15 16:23 | P.CONS ---
History of Present Illness - Reason for Consult Consult date: 02/14/22 Medical management Requesting physician: Vinny Hernandez - Chief Complaint Left knee surgery - History of Present Illness This is a very pleasant 71-year-old patient who follows with Dr. Newman. Chronic stable medical conditions include GERD, hyperlipidemia, osteoarthritis, PACs. Patient has undergone left total knee arthroplasty. Postprocedure laying in bed. Pain is controlled. No nausea vomiting. A bit tired. Denies any cardiac or pulmonary issues. Review of systems: GEN.: None EYES: None HEENT: None NECK: None RESPIRATORY: None CARDIOVASCULAR: None GASTROINTESTINAL: None GENITOURINARY: None MUSCULOSKELETAL: Joint pains LYMPHATICS: None HEMATOLOGICAL: None PSYCHIATRY: None NEUROLOGICAL: None Past medical history to include: GERD, hyperlipidemia, osteoarthritis, PA-C, microscopic hematuria Social history: Normally has 1 alcoholic drink a day. No smoking. Family history: Breast cancer Physical examination: VITAL SIGNS: 97.6, 87, 18, 112/71, 97% room air GENERAL: BMI 30, declining bed, awake comfortable. EYES: Pupils equal. Conjunctiva normal. HEENT: External appearance of nose and ears normal, oral cavity grossly normal. NECK: JVD not raised; masses not palpable. HEART: First and second heart sounds are normal; no edema. LUNGS: Respiratory rate normal; clear to auscultation. ABDOMEN: Soft, nontender, liver spleen not palpable, no masses palpable. PSYCH: Alert and oriented x3; mood and affect normal. MUSCULOSKELETAL:No Clubbing/cyanosis;muscles-grossly intact. Evidence of OA. Dressing over the left knee. NEUROLOGICAL: Cranial nerves grossly intact; no facial asymmetry, power and sensation grossly intact. LYMPHATICS: No lymph nodes palpable in the axilla and neck Assessment and plan: -Left total knee arthroplasty. Eliquis for DVT prophylaxis. Pain control. [place] -Primary osteoarthritis multiple joints bilaterally Tylenol as needed -Depression otherwise specified Effexor XL 150 mg daily at bedtime -GERD Pepcid Home medications resumed. Pain control in place. DVT prophylaxis. Care was discussed with the patient. Questions answered. Thank you Dr. Hernandez Past Medical History Past Medical History: GERD/Reflux, Hyperlipidemia, Osteoarthritis (OA) Additional Past Medical History / Comment(s): PAC's. Slightly elevated cholesterol. Slightly elevated blood pressure at times. Recent "microscopic blood in urine, Dr Ortiz monitoring". History of Any Multi-Drug Resistant Organisms: None Reported Past Surgical History: Joint Replacement, Orthopedic Surgery Additional Past Surgical History / Comment(s): [place] removed from back, oral/jaw surgery, dental implants, right total knee replacement - removed and replaced again, right femur hinge, right carpal tunnel surgery. Past Anesthesia/Blood Transfusion Reactions: Motion Sickness Additional Past Anesthesia/Blood Transfusion Reaction / Comm: Motion sickness in the past, none in years. Past Psychological History: Anxiety, Depression Smoking Status: Never smoker Past Alcohol Use History: Daily Additional Past Alcohol Use History / Comment(s): "1 alcoholic drink daily on average, sometimes 2, sometimes none". Past Drug Use History: None Reported - Past Family History Sister(s) Family Medical History: Cancer Additional Family Medical History / Comment(s): Breast cancer. Medications and Allergies Home Medications Medication Instructions Recorded Confirmed Type Acetaminophen [Tylenol] 500 - 1,000 mg PO DIRECTED PRN 06/29/21 02/14/22 History Ashwagandha Root Extract 800 mg PO BID 06/29/21 02/14/22 History Betamethasone Dipropionate 1 applic TOPICAL DAILY PRN 06/29/21 02/14/22 History [Betamethasone Dipropionate 0.05%] Famotidine 10 mg PO DAILY PRN 06/29/21 02/14/22 History LORazepam [Ativan] 0.25 mg PO DAILY PRN 06/29/21 02/14/22 History Lactose Enzymes 1 dose PO DAILY PRN 06/29/21 02/14/22 History Loratadine [Claritin] 10 mg PO DAILY PRN 06/29/21 02/14/22 History [place] Bone Strength 1 tab PO DAILY 06/29/21 02/14/22 History Venlafaxine HCl ER [Effexor XR] 150 mg PO HS 06/29/21 02/14/22 History Calcium Carbonate [Tums] 500 - 1,000 mg PO QID PRN 02/09/22 02/14/22 History Multivitamins, Thera [Multivitamin 1 tab PO DAILY 02/09/22 02/14/22 History (formulary)] Apixaban [Eliquis] 2.5 mg PO BID #60 tab 02/15/22 Rx Docusate [Colace] 100 mg PO DAILY #30 capsule 02/15/22 Rx HYDROcodone/APAP 7.5-325MG [[place] 1 each PO Q6HR PRN #42 tab 02/15/22 Rx 7.5] Allergies Allergy/AdvReac Type Severity Reaction Status Date / Time bacitracin Allergy Rash/Hives Verified 02/14/22 11:00 neomycin Allergy Rash/Hives Verified 02/14/22 11:00 1,3-diphenylguanidine Allergy Unknown Uncoded 02/14/22 11:00 paraphenylendiamine base Allergy Unknown Uncoded 02/14/22 11:00 plastic tape Allergy Rash/Hives Uncoded 02/14/22 11:00 Physical Exam Vitals: Vital Signs Temp Pulse Resp BP Pulse Ox 02/14/22 16:07 97.6 F 87 18 112/71 97 02/14/22 15:30 70 16 100/49 94 L 02/14/22 15:15 73 16 115/57 94 L 02/14/22 15:00 74 16 109/56 100 02/14/22 14:45 62 16 113/62 100 02/14/22 14:30 66 16 114/57 100 02/14/22 14:24 96.8 F L 67 16 110/56 100 02/14/22 12:06 82 16 117/56 100 02/14/22 10:55 99.6 F 92 16 154/70 97 Intake and Output 02/14/22 02/14/22 02/14/22 06:59 14:59 22:59 Intake Total 1751 150 Output Total 50 Balance 1701 150 Intake: IV 1751 150 Output: Estimated Blood Loss 50 Other: Weight 62.8 kg 62.8 kg Results CBC & Chem 7: 02/15/22 06:41
--- NOTE | 2022-02-15 16:25 | P.PN ---
Progress Note - Text Progress Note Date: 02/15/22 - Chief Complaint Left knee surgery Hospital course: This is a very pleasant 71-year-old patient who follows with Dr. Newman. Chronic stable medical conditions include GERD, hyperlipidemia, osteoarthritis, PACs. Patient has undergone left total knee arthroplasty. Postprocedure laying in bed. Pain is controlled. No nausea vomiting. A bit tired. Denies any cardiac or pulmonary issues. 02/15/2022: No chest pain. No nausea vomiting. Did tolerate breakfast. Did ambulate. Pain at the operative site. Current medications reviewed Past medical history to include: GERD, hyperlipidemia, osteoarthritis, PA-C, microscopic hematuria Social history: Normally has 1 alcoholic drink a day. No smoking. Family history: Breast cancer Physical examination: VITAL SIGNS: 98.9, 92, 16, 102/61, 91% room air GENERAL: Sitting on bed, awake, comfortable EYES: Pupils equal. Conjunctiva normal. HEENT: External appearance of nose and ears normal, oral cavity grossly normal. NECK: JVD not raised; masses not palpable. HEART: First and second heart sounds are normal; no edema. LUNGS: Respiratory rate normal; clear to auscultation. ABDOMEN: Soft, nontender, liver spleen not palpable, no masses palpable. PSYCH: Alert and oriented x3; mood and affect normal. MUSCULOSKELETAL:No Clubbing/cyanosis;muscles-grossly intact. Evidence of OA. Dressing over the left knee. INVESTIGATIONS, reviewed in the clinical context: White count 8.60 globin 10.3 platelets 269 COVID 19: Not detected Assessment and plan: -Left total knee arthroplasty. Eliquis for DVT prophylaxis. Pain control. [place] -Primary osteoarthritis multiple joints bilaterally Tylenol as needed -Depression otherwise specified Effexor XL 150 mg daily at bedtime -Acute postprocedure blood this anemia, expected from surgery [id number] iron supplementation -GERD Pepcid Discussed with patient. Follow-up with Dr. Newman upon discharge. Thank you Dr. Hernandez
[2022-02-15] MEDS: SENNOSIDES-DOCUSATE SODIUM 1 EACH TAB PO SCH (20:37)
[2022-02-15] MEDS: VENLAFAXINE HCL ER 150 MG CAP PO SCH (20:37)
[2022-02-16] MEDS: HYDROcodone/APAP 7.5-325MG 1 EACH TAB PO PRN ×4 (01:38→20:05)
[2022-02-16] MEDS: MULTIVITAMINS, THERA 1 EACH TAB PO SCH (07:27)
[2022-02-16] MEDS: RIVAROXABAN 10 MG TAB PO SCH (07:28)
[2022-02-16] MEDS ORDERED: HYDROcodone/APAP 7.5-325MG 1 EACH TAB PO PRN (08:14)
[2022-02-16] MEDS: LACTATED RINGERS 1,000 ML IV SCH ×2 (09:39)
[2022-02-16] MEDS: traMADol 50 MG TAB PO SCH ×4 (09:44→22:46)
--- NOTE | 2022-02-16 11:25 | P.PN ---
Subjective Progress Note Date: 02/16/22 Principal diagnosis: Status post left total knee arthroplasty Patient evaluated at bedside, she is resting in her hospital bed. Patient was not discharged home yesterday. Patient was having quite a bit of discomfort later in the day and was having a lot of discomfort when ambulating on the lower extremity. She feels that the pain control is not adequate at this time. She i s urinating with no difficulty. Patient denies any headaches, lightheadedness, chest pain shortness of breath. Objective - Vital Signs Vital signs: Vital Signs Temp 98.3 F 02/16/22 07:45 Pulse 96 02/16/22 07:45 Resp 18 02/16/22 07:45 BP 136/59 02/16/22 07:45 Pulse Ox 94 L 02/16/22 07:45 FiO2 Intake & Output 02/15/22 02/16/22 02/16/22 18:59 06:59 18:59 Intake Total 350 Output Total 200 Balance 150 Intake: Oral 350 Output: Urine 200 Other: Voiding Method Toilet Toilet # Voids 2 1 - Exam Left lower extremity: Incision is clean, dry, and intact. The exofin fusion tape is in good condition. There is minimal soft tissue swelling and ecchymosis surrounding the medial and lateral aspects of the incision. Calf is soft, no tenderness with palpation. Plantar flexion, dorsiflexion, EHL, FHL are intact. Sensory exam to light touch throughout the extremity is intact, dorsal pedis pulses 2+. - Labs CBC & Chem 7: 02/15/22 06:41 Assessment and Plan Assessment: Postoperative day #2 status post left total knee arthroplasty Plan: Pain control, we did adjust oral medication, this will include 1-2 [place] 7.5 mg/325 mg every 6 hours, tramadol 50 mg every 6 hours. We did discuss the use of IV pain medication and try to hold off on that at this point. GI and DVT prophylaxis, utilizing Eliquis 2.5 mg daily for 2 weeks, Colace 100 mg daily also will be prescribed Wound care instructions were discussed, this including icing elevating along with showering Home physical therapy/nursing after discharge Encourage incentive spirometer Medical recommendations I spoke with the patient at length today regarding her recovery and expectations while in the hospital. I explained to her that she should continue to try her very best weight-bear as tolerated, and to use the bathroom versus using a bedpan. A bedside commode is also available to her she's having a lot of difficulty. Patient does live at home alone and has very limited help. I spoke with her regarding the possibility of subacute rehab. I did reach out to case management regarding this to start the authorization process. Discharge planning: Discharge will be held at this time, pending outpatient does overnight we'll determine if she is discharged to home versus rehab Time with Patient: Less than 30
--- NOTE | 2022-02-16 12:38 | P.PN ---
Progress Note - Text Progress Note Date: 02/16/22 - Chief Complaint Left knee surgery Hospital course: This is a very pleasant 71-year-old patient who follows with Dr. Newman. Chronic stable medical conditions include GERD, hyperlipidemia, osteoarthritis, PACs. Patient has undergone left total knee arthroplasty. Postprocedure laying in bed. Pain is controlled. No nausea vomiting. A bit tired. Denies any cardiac or pulmonary issues. 02/15/2022: No chest pain. No nausea vomiting. Did tolerate breakfast. Did ambulate. Pain at the operative site. 02/16/2022: Did work with therapy. Significant pain at the operative site. Oral intake fair. Looking to going to rehab. Active Medications Acetaminophen (Acetaminophen Tab 325 Mg Tab) 650 mg PO Q4HR PRN PRN Reason: Pain Scale 1 to 5 Stop: 03/16/22 14:07 Hydrocodone Bitart/Acetaminophen (Hydrocodone/Apap 7.5-325mg 1 Each Tab) 1 each PO Q6H PRN PRN Reason: Pain Scale 6 to 10 Stop: 03/16/22 14:07 Last Admin: 02/16/22 07:27 Dose: 1 each Hydrocodone Bitart/Acetaminophen (Hydrocodone/Apap 7.5-325mg 1 Each Tab) 2 each PO Q6HR PRN PRN Reason: Pain Famotidine (Famotidine 20 Mg Tab) 10 mg PO DAILY PRN PRN Reason: GI Upset Hydromorphone HCl (Hydromorphone 0.5 Mg/0.5 Ml Syringe) 0.5 mg IVP Q3HR PRN PRN Reason: Pain Scale 4 to 6 Stop: 03/16/22 14:07 Last Admin: 02/15/22 01:38 Dose: 0.5 mg Hydromorphone HCl (Hydromorphone 1 Mg/Ml 1 Ml Syringe) 1 mg IVP Q3HR PRN PRN Reason: Pain Scale 7 to 10 Stop: 03/16/22 14:07 Last Admin: 02/15/22 22:45 Dose: 1 mg Hydroxyzine Pamoate (Hydroxyzine Pamoate 25 Mg Cap) 25 mg PO Q6HR PRN PRN Reason: Anxiety Last Admin: 02/15/22 20:37 Dose: 25 mg Lactated Ringer's (Lactated Ringers) 1,000 mls @ 20 mls/hr IV .Q24H ROJAS Stop: 03/16/22 05:42 Last Admin: 02/16/22 09:39 Dose: Not Given Lactated Ringer's (Lactated Ringers) 1,000 mls @ 50 mls/hr IV .Q20H ROJAS Last Admin: 02/16/22 09:39 Dose: Not Given Lidocaine HCl (Lidocaine 1% (10mg/Ml) For Iv Start) 0.1 ml INTRADERMA PER PROTOCOL PRN PRN Reason: IV Start Stop: 03/16/22 05:42 Lorazepam (Lorazepam 0.5 Mg Tab) 0.25 mg PO DAILY PRN PRN Reason: Anxiety Last Admin: 02/15/22 17:19 Dose: 0.25 mg Magnesium Hydroxide (Magnesium Hydroxide 2,400 Mg/10 Ml Cup) 2,400 mg PO DAILY PRN PRN Reason: Constipation Stop: 03/16/22 14:07 Multivitamins (Multivitamins, Thera 1 Each Tab) 1 each PO DAILY ROJAS Last Admin: 02/16/22 07:27 Dose: 1 each Naloxone HCl (Naloxone 0.4 Mg/Ml 1 Ml Vial) 0.2 mg IV Q2M PRN PRN Reason: Opioid Reversal Stop: 03/16/22 14:07 Ondansetron HCl (Ondansetron 4 Mg/2 Ml Vial) 4 mg IVP Q8HR PRN PRN Reason: Nausea And Vomiting Stop: 03/16/22 14:07 Rivaroxaban (Rivaroxaban 10 Mg Tab) 10 mg PO DAILY ROJAS; Protocol Stop: 02/27/22 09:01 Last Admin: 02/16/22 07:28 Dose: 10 mg Senna/Docusate Sodium (Sennosides-Docusate Sodium 1 Each Tab) 2 each PO HS ROJAS Stop: 03/16/22 21:01 Last Admin: 02/15/22 20:37 Dose: 2 each Tramadol HCl (Tramadol 50 Mg Tab) 50 mg PO QID ROJAS Last Admin: 02/16/22 09:44 Dose: 50 mg Venlafaxine HCl (Venlafaxine Hcl Er 150 Mg Cap) 150 mg PO HS ROJAS Last Admin: 02/15/22 20:37 Dose: 150 mg Past medical history to include: GERD, hyperlipidemia, osteoarthritis, PA-C, microscopic hematuria Social history: Normally has 1 alcoholic drink a day. No smoking. Family history: Breast cancer Physical examination: VITAL SIGNS: 98.3, 96, 18, 1:30 01/29/1960, 94% room air GENERAL: Sitting on bed, awake, comfortable EYES: Pupils equal. Conjunctiva normal. HEENT: External appearance of nose and ears normal, oral cavity grossly normal. NECK: JVD not raised; masses not palpable. HEART: First and second heart sounds are normal; no edema. LUNGS: Respiratory rate normal; clear to auscultation. ABDOMEN: Soft, nontender, liver spleen not palpable, no masses palpable. PSYCH: Alert and oriented x3; mood and affect normal. MUSCULOSKELETAL:No Clubbing/cyanosis;muscles-grossly intact. Evidence of OA. Dressing over the left knee. INVESTIGATIONS, reviewed in the clinical context: White count 8.60 globin 10.3 platelets 269 COVID 19: Not detected Assessment and plan: -Left total knee arthroplasty. Eliquis for DVT prophylaxis. Pain control. [place] -Primary osteoarthritis multiple joints bilaterally Tylenol as needed -Depression otherwise specified Effexor XL 150 mg daily at bedtime -Acute postprocedure blood this anemia, expected from surgery [id number] iron supplementation -GERD Pepcid Discussed with patient. Continue current medications. Iron supplementation added. Thank you Dr. Hernandez
[2022-02-16] MEDS: VENLAFAXINE HCL ER 150 MG CAP PO SCH (20:06)
[2022-02-16] MEDS: SENNOSIDES-DOCUSATE SODIUM 1 EACH TAB PO SCH (20:06)
[2022-02-17] MEDS: RIVAROXABAN 10 MG TAB PO SCH (07:28)
[2022-02-17] MEDS: LACTATED RINGERS 1,000 ML IV SCH ×2 (07:28)
[2022-02-17] MEDS: MULTIVITAMINS, THERA 1 EACH TAB PO SCH (07:28)
[2022-02-17] MEDS: HYDROcodone/APAP 7.5-325MG 1 EACH TAB PO PRN ×2 (07:29→12:27)
--- NOTE | 2022-02-17 08:21 | P.PN ---
Subjective Progress Note Date: 02/17/22 Principal diagnosis: Left knee osteoarthritis Patient was seen at bedside this morning resting comfortably lying in semirecumbent position. Patient says she is feeling that rehab is necessary for her at this time to aid in her recovery. Patient says she does have a walker for when she goes home. Patient says she has been up every 2-3 hours because she needs to urinate and she does bear weight on her left leg, however, patient says it is in a moderate amount of pain when she walks around. Patient says she has worked with physical therapy daily. Patient says she has been using incentive spirometer but she says she probably has not been using it as much as she should be. Patient denies chest pain, fever, shortness breath, nausea, vomiting, change in vision, loss of bowel/bladder control Objective - Vital Signs Vital signs: Vital Signs Temp 98 F 02/17/22 01:27 Pulse 87 02/17/22 01:27 Resp 14 02/17/22 01:27 BP 121/76 02/17/22 01:27 Pulse Ox 94 L 02/17/22 01:27 FiO2 Intake & Output 02/16/22 02/17/22 02/17/22 18:59 06:59 18:59 Other: Voiding Method Toilet Toilet # Voids 2 - Exam Left knee: Incision is clean, dry, and intact. The exofin fusion tape is in good condition. There is minimal soft tissue swelling and ecchymosis surrounding the medial and lateral aspects of the incision. Calf is soft, no tenderness with palpation. Plantar flexion, dorsiflexion, EHL, FHL are intact. Sensory exam to light touch throughout the extremity is intact, dorsal pedis pulses 2+. - Labs CBC & Chem 7: 02/15/22 06:41 Assessment and Plan Assessment: Left knee osteoarthritis - Postop day #3 status post left total knee arthroplasty Plan: 1. Left knee osteoarthritis - left total knee arthroplasty performed 02/14/2022. Patient stable at bedside this morning. Discharge to rehab today 2. Appreciate medical management 3. Pain management - [place] 7.5 mg/325 mg; tramadol 4. DVT prophylaxis - Xarelto in hospital. Discharge with Eliquis 5. GI prophylaxis - senna; Colace 6. PT/OT - weightbearing as tolerated with walker 7. Encourage incentive spirometer use Time with Patient: Less than 30
[2022-02-17] MEDS: traMADol 50 MG TAB PO SCH ×2 (10:05→16:27)
[2022-02-17 15:25] VITALS: BP 123/63; PULSE 105; RESP 18; TEMP 99.2
--- NOTE | 2022-02-17 17:26 | P.PN ---
Progress Note - Text Progress Note Date: 02/17/22 - Chief Complaint Left knee surgery Hospital course: This is a very pleasant 71-year-old patient who follows with Dr. Newman. Chronic stable medical conditions include GERD, hyperlipidemia, osteoarthritis, PACs. Patient has undergone left total knee arthroplasty. Postprocedure laying in bed. Pain is controlled. No nausea vomiting. A bit tired. Denies any cardiac or pulmonary issues. 02/15/2022: No chest pain. No nausea vomiting. Did tolerate breakfast. Did ambulate. Pain at the operative site. 02/16/2022: Did work with therapy. Significant pain at the operative site. Oral intake fair. Looking to going to rehab. February 17: Pain at the operative site. The able to use a walker. [facility]. Oral intake fair. Current medications reviewed Past medical history to include: GERD, hyperlipidemia, osteoarthritis, PA-C, microscopic hematuria Social history: Normally has 1 alcoholic drink a day. No smoking. Family history: Breast cancer Physical examination: VITAL SIGNS: 97.9, 71, 16, 132/80, 94% room air GENERAL: , comfortable EYES: Pupils equal. Conjunctiva normal. HEENT: External appearance of nose and ears normal, oral cavity grossly normal. NECK: JVD not raised; masses not palpable. HEART: First and second heart sounds are normal; no edema. LUNGS: Respiratory rate normal; clear to auscultation. ABDOMEN: Soft, nontender, liver spleen not palpable, no masses palpable. PSYCH: Alert and oriented x3; mood and affect normal. MUSCULOSKELETAL:No Clubbing/cyanosis;muscles-grossly intact. Evidence of OA. Dressing over the left knee. INVESTIGATIONS, reviewed in the clinical context: White count 8.60 globin 10.3 platelets 269 COVID 19: Not detected Assessment and plan: -Left total knee arthroplasty. Eliquis for DVT prophylaxis. Pain control. [place] -Primary osteoarthritis multiple joints bilaterally Tylenol as needed -Depression otherwise specified Effexor XL 150 mg daily at bedtime -Acute postprocedure blood this anemia, expected from surgery [id number] iron supplementation -GERD Pepcid Accepted at rehab [facility]. Continue current medications. Discussed with patient. Thank you Dr. Hernandez
== END 2022-02-17 16:51 | DRG 470 ==
LOC: OR 10:27 → 4SSUR 14:24 → OR 02-17 07:43
PROVIDERS: ADMIT Orthopaedic Surgery; ATTEND Orthopaedic Surgery
PROC: 0SRD0J9 Replacement of Left Knee Joint with Synthetic Substitute, Cemented, Open Approach (ICD-10-PCS; principal; 2022-02-14 12:10)
DX: M17.12 Unilateral primary osteoarthritis, left knee (principal); D62 Acute posthemorrhagic anemia; Z20.822 Contact with and (suspected) exposure to COVID-19; E55.9 Vitamin D deficiency, unspecified; E78.5 Hyperlipidemia, unspecified; M85.80 Other specified disorders of bone density and structure, unspecified site; M21.162 Varus deformity, not elsewhere classified, left knee; K21.9 Gastro-esophageal reflux disease without esophagitis; E78.00 Pure hypercholesterolemia, unspecified; K59.00 Constipation, unspecified; F41.8 Other specified anxiety disorders; Z79.82 Long term (current) use of aspirin; Z79.899 Other long term (current) drug therapy; Z87.11 Personal history of peptic ulcer disease; Z96.651 Presence of right artificial knee joint; Z88.3 Allergy status to other anti-infective agents; Z88.8 Allergy status to other drugs, medicaments and biological substances; Z91.048 Other nonmedicinal substance allergy status
CPT/HCPCS: 64448; 64999; 76942; 85025; 87635; 88300

== ENCOUNTER → 2022-06-26 | Outpatient (CLI) | payer MEDICARE, OTHER ==
--- NOTE | 2022-06-27 09:35 | MM ---
Reason for Exam: Screening (asymptomatic). Last mammogram was performed 1 year(s) and 1 month(s) ago. Patient History: Menarche at age 12. First Full-Term at age 31. Late child-bearing (after 30). Postmenopausal. Patient has history of breast feeding. Sister had breast cancer, age 50. Risk Values: Gloria 5 year model risk: 3.6%. NCI Lifetime model risk: 8.6%. Prior Study Comparison: 05/24/2017 Bilateral Screening Mammogram, [facility]. 12/04/2018 Bilateral Screening Mammogram, [facility]. 06/10/2021 Bilateral Screening Mammogram, [facility]. Tissue Density: The breast tissue is heterogeneously dense. This may lower the sensitivity of mammography. Findings: Analyzed By CAD. There is no suspicious group of microcalcifications or new suspicious mass in either breast. Benign secretory calcifications of the right. No significant change from prior exams. Overall Assessment: Benign, BI-RAD 2 Management: Screening Mammogram of both breasts in 1 year. A clinical breast exam by your physician is recommended on an annual basis and results should be correlated with mammographic findings. Electronically signed and approved by: Miguel Jewell D.O.
== END | disposition home or self-care (01) ==
LOC: RADMAMWWP 15:00
PROVIDERS: ATTEND Obstetrics & Gynecology
DX: Z12.31 Encounter for screening mammogram for malignant neoplasm of breast (principal); Z78.0 Asymptomatic menopausal state; Z80.3 Family history of malignant neoplasm of breast
CPT/HCPCS: 77063; 77067

== ENCOUNTER → 2023-08-01 | Outpatient (CLI) | payer MEDICARE, OTHER ==
--- NOTE | 2023-08-01 15:24 | BD ---
EXAMINATION TYPE: Axial Bone Density DATE OF EXAM: 08/01/2023 CLINICAL HISTORY: 73 years old Female. ICD-10 CODE: M85.88 OTHER BONE DISORDER Height: 4 ft 9 in Weight: 157no FRAX RISK QUESTIONS: Alcohol (3 or more units per day): no Family History (Parent hip fracture): no Glucocorticoids (More than 3mos): no (Ex: prednisone, prednisolone, methylprednisolone, dexamethasone, and hydrocortisone). History of Fracture in Adulthood: yes Secondary Osteoporosis: 1. Type 1 Diabetes: no 2. Hyperthyroidism: no 3. Menopause before 45: no 4. Malnutrition: no 5. Chronic liver disease: no Rheumatoid Arthritis: no Current Tobacco Use: no RISK FACTORS HISTORY OF: Surgery to Spine/Hip(right/left)/Wrist (right/left): no Family History of Osteoporosis: unsure Active: no Diet low in dairy products/other sources of calcium: no Postmenopausal woman: yes Take estrogen and/or progesterone medications: none now Lost more than 2 inches in height since high school: no Frequent falls: yes Poor Health: good Hyperparathyroidism: no Adrenal Insufficiency: no MEDICATIONS: Additional Medications: Effexor, Additional History: EXAM MEASUREMENTS: Bone mineral densitometry was performed using the [employer] System. Bone mineral density as measured about the Lumbar spine is: ----- L1-L4(G/cm2): 1.248 T Score Values are as follows: ----- L1: -2.3 ----- L2: -0.8 ----- L3: 2.0 ----- L4: 2.8 ----- L1-L4: 0.6 Z Score Values are as follows: ----- L1: -0.8 ----- L2: 0.7 ----- L3: 3.6 ----- L4: 4.3 ----- L1-L4: 2.1 Bone mineral density has: increased 17.2 % since study of 2020 Bone mineral density about the R hip (g/cm2): 0.752 Bone mineral density about the L hip (g/cm2): 0.701 T Score values are as follows: -----R Neck: -2.1 -----L Neck: -2.4 -----R Total: -0.9 -----L Total: -2.3 Z Score values are as follows: -----R Neck: -0.3 -----L Neck: -0.7 -----R Total: 0.7 -----L Total: -0.7 Bone mineral density has: increased 0.6 %since study of 2020 FRAX%s: The graph provided illustrates a 22.2 %or a major osteoporotic fx and a 6.1chance for the hip s probability for fx in 10 years time. IMPRESSION: Osteopenia (T Score between -2.5 and -1). There is slightly increased risk of fracture and the patient may be considered for treatment. Re-Screen 2-5 years. NOTE: T-SCORE=SD OF THE YOUNG ADULT MEAN.
--- NOTE | 2023-08-04 23:21 | MM ---
Reason for Exam: Screening (asymptomatic). Last mammogram was performed 1 year(s) and 1 month(s) ago. Patient History: Menarche at age 12. First Full-Term at age 31. Late child-bearing (after 30). Postmenopausal. Patient has history of breast feeding. Sister had breast cancer, age 50. Risk Values: Gloria 5 year model risk: 3.6%. NCI Lifetime model risk: 8.1%. Prior Study Comparison: 09/08/2015 Bilateral Screening Mammogram, [facility]. 05/24/2017 Bilateral Screening Mammogram, [facility]. 12/04/2018 Bilateral Screening Mammogram, [facility]. 06/10/2021 Bilateral Screening Mammogram, [facility]. 06/26/2022 Bilateral MG 3D screening mammo w/cad, [facility]. Tissue Density: There are scattered fibroglandular densities. Findings: Analyzed By CAD. Lateral asymmetric density in the left breast has become more defined. This may represent superimposition shadow but further evaluation is recommended. Otherwise, no significant change. Overall Assessment: Incomplete: need additional imaging evaluation, BI-RAD 0 Management: Special View Mammogram of the left breast. Diagnostic Breast Ultrasound of the left breast. Additional views to include spot 3-D CC, 3-D CC rolled, and 3-D ML views. Targeted left breast ultrasound if any persisting abnormality. [facility] will attempt to contact patient to return for supplemental views and ultrasound if indicated. Electronically signed and approved by: Kathy Brown M.D. Radiologist
== END | disposition home or self-care (01) ==
LOC: RADBDWWP 13:31
PROVIDERS: ATTEND Obstetrics & Gynecology
DX: Z12.31 Encounter for screening mammogram for malignant neoplasm of breast (principal); M85.89 Other specified disorders of bone density and structure, multiple sites; Z78.0 Asymptomatic menopausal state; Z80.3 Family history of malignant neoplasm of breast
CPT/HCPCS: 77063; 77067; 77080

== ENCOUNTER → 2023-08-22 | Outpatient (CLI) | payer MEDICARE, OTHER ==
--- NOTE | 2023-08-24 16:36 | MM ---
Reason for Exam: Additional evaluation requested from abnormal screening. Last screening mammogram was performed less than 1 month ago. Patient History: Menarche at age 12. First Full-Term at age 31. Late child-bearing (after 30). Postmenopausal. Patient has history of breast feeding. Sister had breast cancer, age 50. Risk Values: Gloria 5 year model risk: 3.6%. NCI Lifetime model risk: 8.1%. Prior Study Comparison: 06/10/2021 Bilateral Screening Mammogram, [facility]. 06/26/2022 Bilateral MG 3D screening mammo w/cad, [facility]. 08/01/2023 Bilateral MG 3D screening mammo w/cad, [facility]. Tissue Density: Left: There are scattered fibroglandular densities. Findings: Analyzed By CAD. There is symmetrical and stable. Focal asymmetries in the upper outer aspect left breast is present, no underlying spiculated or lobulated mass, cluster microcalcifications, architectural distortion or secondary signs of malignancy radiographically apparent. Overall Assessment: Probably benign, BI-RAD 3 Management: Diagnostic Mammogram of the left breast in 6 months. A negative mammogram report should not preclude additional follow up of suspicious palpable abnormalities. Patient should continue monthly self breast exam. A clinical breast exam by your physician is recommended on an annual basis and results should be correlated with mammographic findings. Electronically signed and approved by: Charly Arreola D.O. Radiologis
== END | disposition home or self-care (01) ==
LOC: RADMAMWWP 14:01
PROVIDERS: ATTEND Obstetrics & Gynecology
DX: R92.322 Mammographic fibroglandular density, left breast (principal); Z80.3 Family history of malignant neoplasm of breast; Z78.0 Asymptomatic menopausal state
CPT/HCPCS: 77065; G0279; 77061

== ENCOUNTER → 2024-02-20 | Outpatient (CLI) | payer MEDICARE, OTHER ==
--- NOTE | 2024-02-20 14:00 | MM ---
Reason for Exam: Additional evaluation requested from abnormal screening. Last screening mammogram was performed 7 month(s) ago. Patient History: Menarche at age 12. First Full-Term at age 31. Late child-bearing (after 30). Postmenopausal. Patient has history of breast feeding. Sister had breast cancer, age 50. Risk Values: Gloria 5 year model risk: 3.6%. NCI Lifetime model risk: 8.1%. Prior Study Comparison: 06/26/2022 Bilateral MG 3D screening mammo w/cad, [facility]. 08/01/2023 Bilateral MG 3D screening mammo w/cad, [facility]. 08/22/2023 Left MG 3D work up w/cad , [facility]. Tissue Density: Left: There are scattered areas of fibroglandular density. Findings: Analyzed By CAD. There appears stable. The density in the outer aspect left breast is not evident on the exaggerated lateral craniocaudal view nipple in profile. No suspicious spiculated or lobulated mass in the lateral view. Finding may be related to summation density. No suspicious groups of microcalcifications, spiculated or lobular masses, architectural distortion or other secondary signs of malignancy are mammographically apparent. Overall Assessment: Benign, BI-RAD 2 Management: Screening Mammogram of both breasts in 6 months. A negative mammogram report should not preclude additional follow up of suspicious palpable abnormalities. Patient should continue monthly self breast exam. A clinical breast exam by your physician is recommended on an annual basis and results should be correlated with mammographic findings. Note on Gloria scores and lifetime risk: 1. A Gloria score greater than 3% is considered moderate risk. If this is the case, consider specialist referral to assess eligibility for a risk reducing agent. 2. If overall lifetime risk for the development of breast cancer is 20% or higher, the patient may qualify for future screening with alternating mammogram and breast MRI. Electronically signed and approved by: Charly Arreola D.O. Radiologis
== END | disposition home or self-care (01) ==
LOC: RADMAMWWP 13:17
PROVIDERS: ATTEND Family Medicine
DX: R92.8 Other abnormal and inconclusive findings on diagnostic imaging of breast (principal); R92.322 Mammographic fibroglandular density, left breast; Z78.0 Asymptomatic menopausal state; Z80.3 Family history of malignant neoplasm of breast
CPT/HCPCS: 77065; G0279; 77061

== ENCOUNTER 2024-04-06 02:41 | Emergency (ER) | payer MEDICARE, OTHER ==
[2024-04-06 02:52] VITALS: RESP 18
--- NOTE | 2024-04-06 02:59 | ED ---
Wound/Laceration HPI - General Chief Complaint: Wound/Laceration Stated Complaint: Eyebrow laceration Time Seen by Provider: 04/06/24 02:55 Source: patient, RN notes reviewed Mode of arrival: ambulatory Limitations: no limitations - History of Present Illness Initial Comments: 73 year old female tripped while outside this morning, at aprox. 0200, and hit her left eyebrow. denies LOC at time of event. not on blood thinners. patient denies pre syncopal symptoms before time of fall. currently she is denying headache, blurry or double vision, shortness of breath, chest pain. patient believes her last tetanus vaccine was within the last 10 years. denies other bony compliants or pain at the time of the fall. - Related Data Home Medications Medication Instructions Recorded Confirmed Acetaminophen [Tylenol] 500 - 1,000 mg PO DIRECTED PRN 06/29/21 02/14/22 Ashwagandha Root Extract 800 mg PO BID 06/29/21 02/14/22 Betamethasone Dipropionate 1 applic TOPICAL DAILY PRN 06/29/21 02/14/22 [Betamethasone Dipropionate 0.05%] Famotidine 10 mg PO DAILY PRN 06/29/21 02/14/22 LORazepam [Ativan] 0.25 mg PO DAILY PRN 06/29/21 02/14/22 Lactose Enzymes 1 dose PO DAILY PRN 06/29/21 02/14/22 Loratadine [Claritin] 10 mg PO DAILY PRN 06/29/21 02/14/22 New Chapter Bone Strength 1 tab PO DAILY 06/29/21 02/14/22 Venlafaxine HCl ER [Effexor XR] 150 mg PO HS 06/29/21 02/14/22 Calcium Carbonate [Tums] 500 - 1,000 mg PO QID PRN 02/09/22 02/14/22 Multivitamins, Thera [Multivitamin 1 tab PO DAILY 02/09/22 02/14/22 (formulary)] Previous Rx's Medication Instructions Recorded Apixaban [Eliquis] 2.5 mg PO BID #60 tab 02/15/22 Docusate [Colace] 100 mg PO DAILY #30 capsule 02/15/22 Ferrous Sulfate [Feosol] 325 mg PO BID #1 tab 02/16/22 HYDROcodone/APAP 10-325MG [[place] 1 tab PO Q4HR PRN 7 Days #28 tab 02/17/22 10-325] LORazepam [Ativan] 0.25 mg PO DAILY 3 Days #3 tab 02/17/22 Cephalexin [Keflex] 500 mg PO Q6HR #40 cap 04/06/24 Allergies Allergy/AdvReac Type Severity Reaction Status Date / Time bacitracin Allergy Rash/Hives Verified 04/06/24 02:52 neomycin Allergy Rash/Hives Verified 04/06/24 02:52 1,3-diphenylguanidine Allergy Unknown Uncoded 04/06/24 02:52 paraphenylendiamine base Allergy Unknown Uncoded 04/06/24 02:52 plastic tape Allergy Rash/Hives Uncoded 04/06/24 02:52 Review of Systems ROS Statement: Those systems with pertinent positive or pertinent negative responses have been documented in the HPI. ROS Other: All systems not noted in ROS Statement are negative. 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 Past Anesthesia/Blood Transfusion Reactions: Motion Sickness Additional Past Anesthesia/Blood Transfusion Reaction / Comment(s): Motion sickness in the past, none in years. Past Psychological History: Anxiety, Depression Smoking Status: Never smoker Past Alcohol Use History: Daily Past Drug Use History: None Reported - Past Family History Sister(s) Family Medical History: Cancer General Exam Limitations: no limitations General appearance: alert, in no apparent distress Head exam: Present: atraumatic, normocephalic, normal inspection Eye exam: Present: PERRL, EOMI, periorbital swelling, other (left superior eyelid laceration aprox. 3 cm with edema and mild ecchymosis) ENT exam: Present: normal exam, mucous membranes moist Neck exam: Present: normal inspection. Absent: tenderness, meningismus, lymphadenopathy Respiratory exam: Present: normal lung sounds bilaterally. Absent: respiratory distress, wheezes, rales, rhonchi, stridor Cardiovascular Exam: Present: regular rate, normal rhythm, normal heart sounds. Absent: systolic murmur, diastolic murmur, rubs, gallop, clicks GI/Abdominal exam: Present: soft, normal bowel sounds. Absent: distended, tenderness, guarding, rebound, rigid Extremities exam: Present: normal inspection, full ROM, normal capillary refill. Absent: tenderness, pedal edema, joint swelling, calf tenderness Back exam: Present: normal inspection Skin exam: Present: warm (laceration over superior left eyebrow), dry, intact, normal color. Absent: rash Course Vital Signs 04/06/24 04/06/24 02:50 04:07 Temperature 98.9 F 98.2 F Pulse Rate 88 81 Respiratory 18 18 Rate Blood Pressure 140/77 136/79 O2 Sat by Pulse 97 96 Oximetry Procedures - Laceration Laceration #1 Consent Obtained: verbal consent Indication: laceration Site: face (left eyebrow) Description: linear Depth: simple, single layer Pre-repair: wound explored, irrigated extensively Type of Sutures: nylon Size of Sutures: 5-0 Number of Sutures: 5 Technique: simple, interrupted Patient Tolerated Procedure: well, no complications Medical Decision Making - Medical Decision Making Was pt. sent in by a medical professional or institution (Dr. PA, PROBATE PARALEGAL, urgent care, hospital, or longterm...) When possible be specific @ -No Did you speak to anyone other than the patient for history (EMS, parent, family, police, friend...)? What history was obtained from this source @ -No Did you review nursing and triage notes (agree or disagree)? Why? @ -I reviewed and agree with nursing and triage notes Were old charts reviewed (outside hosp., previous admission, EMS record, old EKG, old radiological studies, urgent care reports/EKG's, longterm records)? Report findings @ -No old charts were reviewed Differential Diagnosis (chest pain, altered mental status, abdominal pain women, abdominal pain men, vaginal bleeding, weakness, fever, dyspnea, syncope, headache, dizziness, GI bleed, back pain, seizure, CVA, palpatations, mental health, musculoskeletal)? @ -[laceration, abrasion, contusion, this list is not all inclusive EKG interpreted by me (3pts min.). @ -none X-rays interpreted by me (1pt min.). @ -None done CT interpreted by me (1pt min.). @ -None done U/S interpreted by me (1pt. min.). @ -None done What testing was considered but not performed or refused? (CT, X-rays, U/S, labs)? Why? @ -Ct imaging of the brain considered but deferred. patient did not lost consciousness, GSC 15 currently and no signs of neurological deficits on examination. no blood thinner use. minimal clinical concern for intracranial abnormality or process. Patient agrees with deferring imaging at this time. What meds were considered but not given or refused? Why? @ -None Did you discuss the management of the patient with other professionals (professionals i.e. Dr., PA, PROBATE PARALEGAL, lab, RT, psych nurse, social contact worker, parts counter associate, teacher, landcare officer, mattress spring encaser)? Give summary @ -No Was smoking cessation discussed for >3mins.? @ -No Was critical care preformed (if so, how long)? @ -No Were there social determinants of health that impacted care today? How? (Homelessness, low income, unemployed, alcoholism, drug addiction, transportation, low edu. Level, literacy, decrease access to med. care, half-way, rehab)? @ -No Was there de-escalation of care discussed even if they declined (Discuss DNR or withdrawal of care, Hospice)? DNR status @ -No What co-morbidities impacted this encounter? (DM, HTN, Smoking, COPD, CAD, Cancer, CVA, ARF, Chemo, Hep., AIDS, mental health diagnosis, sleep apnea, morbid obesity)? @ -None Was patient admitted / discharged? Hospital course, mention meds given and route, prescriptions, significant lab abnormalities, going to OR and other pertinent info. @Discharge. 73-year-old female with fall. On examination patient noted to have a 3 cm laceration over the left eyebrow. LET solution applied for approximately 15 minutes and thoroughly cleansed with sterile water and 5 simple interrupted sutures were placed with 5-0 nylon. Return to the emergency department or appropriate primary care provider in 5 to 7 days for suture removal. Recommended to keep the area clean and dry over the next week. All questions answered at bedside strict return. Discussed with the patient she is verbalized understanding. Prescription sent for antibiotic to her pharmacy. Discussed with Dr. Parmar Undiagnosed new problem with uncertain prognosis? @ -No Drug Therapy requiring intensive monitoring for toxicity (Heparin, Nitro, Insulin, Cardizem)? @ -No Were any procedures done? @ -wound irrigation, laceration repair, suture Diagnosis/symptom? @ -Fall, minor head trauma, laceration Acute, or Chronic, or Acute on Chronic? @ -acute Uncomplicated (without systemic symptoms) or Complicated (systemic symptoms)? @ -uncomplicated Side effects of treatment? @ -No Exacerbation, Progression, or Severe Exacerbation? @ -No Poses a threat to life or bodily function? How? (Chest pain, [place], [place], pneumonia, PE, COPD, DKA, ARF, appy, cholecystitis, CVA, Diverticulitis, Homicidal, Suicidal, threat to staff... and all critical care pts) @ -No Disposition Clinical Impression: Laceration, Fall, Minor head trauma Disposition: HOME SELF-CARE Condition: Good Instructions (If sedation given, give patient instructions): Care For Your Stitches (ED) Additional Instructions: Return to the emergency department for any new or worsening symptoms. Return to your primary care provider to the emergency department in 5 to 7 days for suture removal. Continue to keep area clean and dry. Prescriptions: Cephalexin [Keflex] 500 mg PO Q6HR #40 cap Is patient prescribed a controlled substance at d/c from ED?: No Referrals: Charly Newman DO [Primary Care Provider] - 1-2 days Time of Disposition: 03:57
[2024-04-06] MEDS ORDERED: LIDOCAINE/EPINEPHR/TETRACAINE 5 ML BOTTLE TOPICAL ONE (03:14)
[2024-04-06] MEDS: DIPH,PERTUS(ACELL)TETVAC-LF 0.5 ML VIAL IM ONE (03:21)
[2024-04-06] MEDS: LIDOCAINE/EPINEPHR/TETRACAINE 5 ML BOTTLE TOPICAL ONE (03:22)
[2024-04-06 04:09] VITALS: BP 136/79; PULSE 81; TEMP 98.2
== END 2024-04-06 04:07 | disposition home or self-care (01) ==
LOC: EC 02:41
DX: S01.112A Laceration without foreign body of left eyelid and periocular area, initial encounter (principal); Z88.1 Allergy status to other antibiotic agents; Z88.8 Allergy status to other drugs, medicaments and biological substances; Z91.09 Other allergy status, other than to drugs and biological substances; Z23 Encounter for immunization; W01.0XXA Fall on same level from slipping, tripping and stumbling without subsequent striking against object, initial encounter
CPT/HCPCS: 12013; 90471; 90715; 99282

== ENCOUNTER 2024-07-18 10:05 | Day surgery (SDC) | payer MEDICARE, OTHER ==
[2024-07-16 15:07] VITALS: BMI 30.2
[~2024-07-18 10:05] MED LIST changes: -ACETAMINOPHEN TAB 500 MG TAB PO PRN; -DEXAMETHASONE SOD PHOSPHATE 4 MG/ML 1 ML VIAL IV ONE; -HYDROmorphone 0.5 MG/0.5 ML SYRINGE IVP PRN; +LACTATED RINGERS 1,000 ML IV SCH; -LIDOCAINE 1% (10MG/ML) FOR IV START INTRADERMA PRN; -MELOXICAM 7.5 MG TAB PO PRN; -MIDAZOLAM 2 MG/2 ML VIAL IV PRN; -ONDANSETRON 4 MG/2 ML VIAL IVP ONE; -TRANEXAMIC ACID IN NACL,ISO-OS 1,000 MG in SALINE 1 100ML.BAG IVPB PRN
[2024-07-18 11:34] VITALS: RESP 16; TEMP 98.6
[2024-07-18] MEDS: LACTATED RINGERS 1,000 ML IV ONE (11:40)
[2024-07-18] MEDS ORDERED: PROPOFOL 10 MG/ML 20 ML VIAL IV ONE (12:00)
[2024-07-18] MEDS ORDERED: LIDOCAINE 1% INJ 10MG/ML (20 ML MDV) ONE (12:00)
--- NOTE | 2024-07-18 12:15 | P.PCN ---
Date of Procedure: 07/18/24 Procedure(s) Performed: BRIEF HISTORY: Patient is a 74-year-old pleasant white female scheduled for an elective colonoscopy as a part of screening for colon cancer/positive Cologuard. PROCEDURE PERFORMED: Colonoscopy with snare polypectomy. PREOPERATIVE DIAGNOSIS: Screening for colon cancer/positive Cologuard. IV sedation per Anesthesia. PROCEDURE: After informed consent was obtained, the patient, was brought into the endoscopy unit. IV sedation was administered by Anesthesia under continuous monitoring. Digital rectal examination was normal. Initially the Olympus CF-160 flexible video colonoscope was then inserted in the rectum, gradually advanced into the cecum without any difficulty. Careful examination was performed as the scope was gradually being withdrawn. Ileocecal valve and the appendiceal orifice were visualized and appeared normal. Prep was excellent. Mucosa of the cecum, had a 7 to 8 mm polyp that was removed by cold snare polypectomy. Rest of the ascending colon, transverse colon, descending colon, sigmoid colon, and rectum appeared normal. Retroflexion was performed in the rectum and no lesions were seen. The patient tolerated the procedure well. IMPRESSION: 7-8 mm cecal polyp status post snare polypectomy Rest of the colon appeared normal RECOMMENDATIONS: Findings of this examination were discussed with the patient as well as the family. She was advised to follow-up with the biopsy results. If the biopsy reveals adenoma she can have repeat colonoscopy in 5 years..
[2024-07-18 12:38] VITALS: BP 115/78; PULSE 86
== END 2024-07-18 13:02 | disposition home or self-care (01) ==
LOC: ORWHC2ENDO 10:05
PROVIDERS: ATTEND Internal Medicine Gastroenterology
DX: D12.0 Benign neoplasm of cecum (principal); K21.9 Gastro-esophageal reflux disease without esophagitis; E78.5 Hyperlipidemia, unspecified; F41.9 Anxiety disorder, unspecified; F32.A Depression, unspecified; M19.90 Unspecified osteoarthritis, unspecified site; Z89.521 Acquired absence of right knee; Z89.522 Acquired absence of left knee; Z88.1 Allergy status to other antibiotic agents; Z79.899 Other long term (current) drug therapy
CPT/HCPCS: 88305; 45385; J2003; J2704

== ENCOUNTER → 2024-09-11 | Outpatient (CLI) | payer MEDICARE, OTHER ==
--- NOTE | 2024-09-11 14:53 | MM ---
Reason for Exam: Screening (asymptomatic). Last mammogram was performed 1 year(s) and 1 month(s) ago. Patient History: Menarche at age 12. First Full-Term at age 31. Late child-bearing (after 29). Postmenopausal. Patient has history of breast feeding. Sister had breast cancer, age 50. Risk Values: Gloria 5 year model risk: 3.6%. NCI Lifetime model risk: 7.6%. Prior Study Comparison: 08/01/2023 Bilateral MG 3D screening mammo w/cad, [facility]. 08/22/2023 Left MG 3D work up w/cad LT, [facility]. 02/20/2024 Left MG 3D diag mammo w/cad LT, [facility]. Tissue Density: There are scattered areas of fibroglandular density. Findings: Analyzed By CAD. Right breast: There is no suspicious group of microcalcifications or new suspicious mass. Left breast: There is no suspicious group of microcalcifications or new suspicious mass. Overall Assessment: Negative, BI-RAD 1 Management: Screening Mammogram of both breasts in [address] [facility] will attempt to contact patient to return for supplemental views and ultrasound if indicated. Patient should continue monthly self-breast exams. A clinical breast exam by your physician is recommended on an annual basis. This exam should not preclude additional follow-up of suspicious palpable abnormalities. Note on Gloria scores and lifetime risk: 1. A Gloria score greater than 3% is considered moderate risk. If this is the case, consider specialist referral to assess eligibility for a risk reducing agent. 2. If overall lifetime risk for the development of breast cancer is 20% or higher, the patient may qualify for future screening with alternating mammogram and breast MRI. [facility], , 09/11/2024 2:51 PM. Electronically signed and approved by: Mauricio Lockhart DO
== END | disposition home or self-care (01) ==
LOC: RADMAMWWP 14:30
PROVIDERS: ATTEND Family Medicine
DX: Z12.31 Encounter for screening mammogram for malignant neoplasm of breast (principal); R92.323 Mammographic fibroglandular density, bilateral breasts; Z78.0 Asymptomatic menopausal state; Z80.3 Family history of malignant neoplasm of breast
CPT/HCPCS: 77063; 77067